=== PATIENT | female | born 1965 | race Caucasian/White ===

== ENCOUNTER 2021-11-28 18:02 | Emergency (ER) | payer MEDICARE, OTHER ==
[2021-11-28] MEDS ORDERED: SODIUM CHLORIDE 0.9% 1,000 ML IV STA (18:05)
--- NOTE | 2021-11-28 18:17 | ED ---
General Adult HPI - General Stated complaint: stroke symptoms Time Seen by Provider: 11/28/21 18:05 - History of Present Illness Initial comments: Dictation was produced using [employer] dictation software. please excuse any grammatical, word or spelling errors. Chief Complaint: Patient is 55-year-old female presents emergency department for altered mental status. History of Present Illness: 85-year-old female she presents to the emergency department for altered mental status she. Presents with EMS. EMS states that patient symptoms started at approximately 5:00 PM which was 40 12:55 hour prior to arrival. EMS did not have a last known normal. I did speak with patient significant other who is listed on her demographics. Gen. exam is Jarda Lott who is identified as patient significant other. At around 2:00 to 6 PM they we re trying to take a nap. Patient according to Jarad Lott was last normal at about 2:00 PM. At around 5:00 PM he asked her if she had a cigarette and noticed that she was very altered. EMS upon arrival reports the patient's blood pressure was significantly elevated with a systolic of 240. They report that patient appeared to not be moving her left side very well compared to her right. She is not following commands. Venous blood glucose was 180. Significant other reports that patient has history of some sort of left-sided brain abnormality that needed treatment that has not been pursued yet. Unable to obtain ROS secondary to mental status. PHYSICAL EXAM: General Impression: Not following commands, eyes open, deviation to the right HEENT: Normocephalic atraumatic, extra-ocular movements intact, pupils equal and reactive to light bilaterally, mucous membranes moist. Cardiovascular: Heart regular rate and rhythm Chest:no retractions, no tachypnea Abdomen: abdomen soft, non-tender, non-distended, no organomegaly Musculoskeletal: Pulses present and equal in all extremities, no peripheral edema Neurological: Gaze deviation to the right, not following commands, mu, moves all extremities grossly with noxious stimuli. Skin: Intact with no visualized rashes ED course: 55-year-old feel presents to the emergency department for altered mental status. Patient is not follow commands a gaze deviation to the right. Code WAS paged prior to patient arriving in the emergency department. Dr. Paez reviewed the images. Patient is not a candidate for all to place at this time given history. CV other than bedside states that he may have noticed convulsive-like movements today. She not in obvious candidate for alteplase at this time given that last known normal according to Oren Bernard was 2:00 PM. At time she presented to us and alteplase is repaired it would have been 4 hours and 30 minutes. Case is discussed with on-call stroke neurologist, Dr. Paez will review the films and provide further instruction. [address] Paez who would not recommend alteplase at this time given this vague history of intracranial mass. Dr. Paez reviewed the CT angio films did not show any large vessel occlusion. Patient not a candidate for thrombectomy. Dr. Paez request the patient be transferred to [facility] where they have neurosurgery service. He also r equests patient given Keppra. Patient given 1 g of Keppra. Spoke with Dr. Javier who is willing to accept patients care for ER to ER transfer. Patient was given some Narcan given that chart review reveals that patient has history of chronic pain and prescriptions for opiates. She did appear to be a little more agitated after Narcan was provided however she still altered. - Related Data Home Medications Medication Instructions Recorded Confirmed ALPRAZolam [Xanax] 1 mg PO HS PRN 04/20/15 04/20/15 Albuterol Inhaler [Ventolin Hfa 2 puff INHALATION RT-Q6H PRN 04/20/15 04/20/15 Inhaler] Gabapentin [Neurontin] 800 mg PO TID 04/20/15 04/20/15 Morphine Sulfate [Morphine Sulfate 30 mg PO QID PRN 04/20/15 04/20/15 ER] Previous Rx's Medication Instructions Recorded Aspirin 81 mg PO DAILY chew 04/22/15 Atorvastatin [Lipitor] 40 mg PO DAILY #30 tab 04/22/15 Diltiazem Cd [Cardizem CD] 120 mg PO DAILY #30 cap.er.24h 04/22/15 Melatonin 1 mg PO HS tab 04/22/15 Nicotine 21Mg/24Hr Patch [Habitrol] 1 patch TRANSDERM DAILY #14 patch 04/22/15 Tiotropium 18 Mcg/Puff [Spiriva] 1 puff INHALATION RT-DAILY #1 04/22/15 inhaler Allergies Allergy/AdvReac Type Severity Reaction Status Date / Time No Known Allergies Allergy Verified 04/20/15 12:30 Review of Systems ROS Statement: Those systems with pertinent positive or pertinent negative responses have been documented in the HPI. ROS Other: All systems not noted in ROS Statement are negative. Past Medical History Additional Past Medical History / Comment(s): DJD History of Any Multi-Drug Resistant Organisms: None Reported Past Surgical History: Section, Orthopedic Surgery Additional Past Surgical History / Comment(s): neck, hip left Past Psychological History: No Psychological Hx Reported Past Alcohol Use History: None Reported Past Drug Use History: Marijuana - Past Family History Mother Family Medical History: Cancer Additional Family Medical History / Comment(s): lung cancer Course Vital Signs 11/28/21 11/28/21 11/28/21 18:04 18:19 18:34 Pulse Rate 120 H 112 H 81 Respiratory 16 16 18 Rate Blood Pressure 250/130 199/130 187/120 O2 Sat by Pulse 97 96 96 Oximetry 11/28/21 11/28/21 11/28/21 18:40 19:00 19:12 Pulse Rate 84 88 Respiratory 18 18 20 Rate Blood Pressure 190/107 230/146 O2 Sat by Pulse 77 L Oximetry Medical Decision Making - Lab Data Result diagrams: 11/28/21 18:40 11/28/21 18:40 Lab Results 11/28/21 11/28/21 11/28/21 Range/Units 18:40 18:40 18:40 WBC 17.0 H (3.8-10.6) k/uL RBC 6.25 H (3.80-5.40) m/uL Hgb 13.3 (11.4-16.0) gm/dL Hct 46.1 H (34.0-46.0) % MCV 73.7 L (80.0-100.0) fL MCH 21.2 L (25.0-35.0) pg MCHC 28.8 L (31.0-37.0) g/dL RDW 16.6 H (11.5-15.5) % Plt Count 307 (150-450) k/uL MPV 9.5 Neutrophils % 75 % Lymphocytes % 16 % Monocytes % 6 % Eosinophils % 1 % Basophils % 1 % Neutrophils # 12.8 H (1.3-7.7) k/uL Lymphocytes # 2.6 (1.0-4.8) k/uL Monocytes # 1.0 (0-1.0) k/uL Eosinophils # 0.2 (0-0.7) k/uL Basophils # 0.1 (0-0.2) k/uL Hypochromasia Marked Anisocytosis Slight Microcytosis Moderate Sodium 135 L (137-145) mmol/L Potassium 3.9 (3.5-5.1) mmol/L Chloride 98 (98-107) mmol/L Carbon Dioxide 22 (22-30) mmol/L Anion Gap 15 mmol/L BUN 12 (7-17) mg/dL Creatinine 0.61 (0.52-1.04) mg/dL Est GFR (CKD-EPI)AfAm >90 (>60 ml/min/1.73 sqM) Est GFR (CKD-EPI)NonAf >90 (>60 ml/min/1.73 sqM) Glucose 248 H (74-99) mg/dL Calcium 9.5 (8.4-10.2) mg/dL Total Bilirubin 0.4 (0.2-1.3) mg/dL AST 34 (14-36) U/L ALT 21 (4-34) U/L Alkaline Phosphatase 146 H (38-126) U/L Troponin I <0.012 (0.000-0.034) ng/mL Total Protein 6.9 (6.3-8.2) g/dL Albumin 4.4 (3.5-5.0) g/dL Critical Care Time Critical Care Time: Yes Total Critical Care Time: 33 Disposition Clinical Impression: Cerebrovascular accident (CVA) Disposition: OTHER INSTITUTION NOT DEFINED Condition: Critical Referrals: Enoc Mullins DO [Primary Care Provider] - 1-2 days Time of Disposition: 19:22 - Out of Hospital Transfer - Req. Specs Out of Hospital Transfer - Requested Specifics: Other Emergency Center ([facility])
[2021-11-28] MEDS ORDERED: ALTEPLASE BOLUS FOR STROKE 5 MG in EMPTY SYRINGE 1 SYR IV STA (18:18)
[2021-11-28] MEDS ORDERED: ALTEPLASE 48 MG in EMPTY BAG 1 BAG IV STA (18:18)
[2021-11-28] MEDS ORDERED: LABETALOL 5 MG/ML VIAL MDV IVP STA (18:29)
--- NOTE | 2021-11-28 18:34 | CT ---
EXAMINATION TYPE: CT brain wo con for TPA DATE OF EXAM: 11/28/2021 COMPARISON: None HISTORY: Neuro deficit, acute, stroke suspected CT DLP: 1086.6 mGycm Automated exposure control for dose reduction was used. Ventricles have normal size. There is no mass effect or midline shift. No sign of intracranial hemorr alvarez. The calvarium is intact. There is normal aeration of the mastoid sinuses. No evidence of cerebr al edema. IMPRESSION: Negative unenhanced head CT scan.
[2021-11-28] MEDS ORDERED: levETIRAcetam IV 1,000 MG in SALINE 1 100ML.BAG IVPB STA (18:42)
[2021-11-28] MEDS ORDERED: LORazepam 2 MG/ML INJ IV STA ×3 (18:44→19:27)
[2021-11-28 18:48] LABS: Anisocytosis Slight; Basophils # (A) 0.1 k/uL (0-0.2); Basophils % (A) 1 %; Eosinophils # (A) 0.2 k/uL (0-0.7); Eosinophils % (A) 1 %; HCT 46.1 % (34.0-46.0); HGB 13.3 gm/dL (11.4-16.0); Hypochromasia Marked; Lymphocytes # (A) 2.6 k/uL (1.0-4.8); Lymphocytes % (A) 16 %; MCH 21.2 pg (25.0-35.0); MCHC 28.8 g/dL (31.0-37.0); MCV 73.7 fL (80.0-100.0); Mean Platelet Volume 9.5; Microcytosis Moderate; Monocytes % (A) 6 %; Neutrophils # (A) 12.8 k/uL (1.3-7.7); Neutrophils % (A) 75 %; Platelet Count 307 k/uL (150-450); RBC 6.25 m/uL (3.80-5.40); RDW 16.6 % (11.5-15.5)
--- NOTE | 2021-11-28 18:52 | CT ---
EXAMINATION TYPE: CT angio head neck DATE OF EXAM: 11/28/2021 COMPARISON: None HISTORY: Neuro deficit, acute, stroke suspected CT DLP: 431.6 mGycm Automated exposure control for dose reduction was used. CONTRAST: Performed with IV Contrast, patient injected with 65cc mL of Isovue 370. Images obtained from the aortic arch to the vertex of the brain with IV contrast. There are Three-D p ostprocessed images. There is normal branching pattern of the great vessels on the aortic arch. There is arterial flow in the subclavian arteries bilaterally. No evidence of aneurysm of the aortic arch. There is some plaque formation at the right carotid artery bifurcation and estimated 30% stenosis belen r the origin. There is moderate plaque formation and estimated close to 40% stenosis origin of the le ft internal carotid artery. No dissection. There is arterial flow in both vertebral arteries. The rig ht vertebral artery is larger than the left. There is arterial flow in the vertebrobasilar artery sys tem. No evidence of carotid or vertebral artery aneurysm or dissection. There are spondylotic changes in the cervical spine. There is moderate spinal stenosis due to develop mentally small spinal canal and endplate spur formation at C5-6. There is mild spinal stenosis also a t C4-5 There is arterial flow in the anterior middle and posterior cerebral arteries bilaterally. No evidenc e of intracranial aneurysm or neovascularity. No mass effect. Normal contrast opacification of the ve nous sinuses. No evidence of hemodynamic arterial stenosis. IMPRESSION: No intracranial angiographic abnormality. There is some mild stenosis in the origins of both internal carotid arteries as above. Spinal stenosis at C4-5 and C5-6
[2021-11-28 18:57] LABS: ALT 21 U/L (4-34); AST 34 U/L (14-36); African American GFR (CKD) >90 (>60 ml/min/1.73 sqM); Albumin 4.4 g/dL (3.5-5.0); Alkaline Phosphatase 146 U/L (38-126); Anion Gap 15 mmol/L; Blood Urea Nitrogen 12 mg/dL (7-17); Calcium 9.5 mg/dL (8.4-10.2); Carbon Dioxide 22 mmol/L (22-30); Chloride 98 mmol/L (98-107); Glucose 248 mg/dL (74-99); Non-African American GFR(CKD) >90 (>60 ml/min/1.73 sqM); Potassium 3.9 mmol/L (3.5-5.1); Sodium 135 mmol/L (137-145); Total Bilirubin 0.4 mg/dL (0.2-1.3); Total Protein 6.9 g/dL (6.3-8.2)
[2021-11-28] MEDS ORDERED: NALOXONE 0.4 MG/ML 1 ML VIAL IVP STA (19:12)
[2021-11-28] MEDS ORDERED: SODIUM CHLORIDE 0.9% 50 ML MINI-BAG IV ONE (19:19)
--- NOTE | 2021-11-28 19:27 | XR ---
EXAMINATION TYPE: XR chest 1V portable DATE OF EXAM: 11/28/2021 COMPARISON: 04/20/2015 HISTORY: Altered mental status TECHNIQUE: FINDINGS: Heart is normal. Lungs are clear. Diaphragm is normal. Bony thorax is intact. IMPRESSION: No active cardiopulmonary disease. Normal heart. No adverse change.
[2021-11-28 19:37] LABS: Acetaminophen <10.0 ug/mL; Salicylate <1.0 mg/dL
[2021-11-28 19:45] LABS: Prothrombin Time 10.7 sec (9.0-12.0)
[2021-11-28 19:46] LABS: Partial Thromboplastin Time 20.3 sec (22.0-30.0)
[2021-11-28 20:25] LABS: Amphetamine Screen,Urine Not Detected (NotDetected); Barbiturate Screen,Urine Not Detected (NotDetected); Benzodiazepines Screen,Urine Detected (NotDetected); Cocaine Screen,Urine Not Detected (NotDetected); Methadone Screen, Urine Not Detected (NotDetected); Opiate Screen,Urine Detected (NotDetected); Oxycodone Screen, Urine Not Detected (NotDetected); Phencyclidine Screen,Urine Not Detected (NotDetected); Tricyclic Antidepressant,Urine Detected (NotDetected); Urn Cannabinoid Scrn Detected (NotDetected)
[2021-11-28 20:57] VITALS: BP 190/91; PULSE 90; RESP 30; TEMP 98.1
== END 2021-11-28 20:57 | disposition other institution (70) ==
LOC: EC 18:02
DX: I63.9 Cerebral infarction, unspecified (principal)
CPT/HCPCS: 36415; 93005; 83930; 80053; 84484; 85025; 85610; 85730; 80306; 80143; 80179; 71045; 70496; 70450; 70498; 99291; 96365; 96366; 96375; 96376; J2060; J2310; J1953; Q9967

== ENCOUNTER 2023-01-27 23:49 | Inpatient (IN) | payer MEDICARE ==
[2023-01-27] MEDS ORDERED: LORazepam 2 MG/ML INJ IV STA (23:52)
[2023-01-27] MEDS ORDERED: NALOXONE 0.4 MG/ML 1 ML VIAL IV PRN (23:54)
--- NOTE | 2023-01-28 00:05 | ED ---
General Adult HPI - General Stated complaint: Alt Mental Time Seen by Provider: 01/27/23 23:51 Source: EMS, RN notes reviewed, old records reviewed Limitations: altered mental status - History of Present Illness Initial comments: 57-year-old female history of seizure disorder presents as a transfer from outside hospital having 2 witnessed seizures and having a prolonged postictal period. She was sent to this institution for neurology consultation. She received laboratory testing and CT imaging of the brain. She was transferred as she had not returned to baseline mental status. She is on Keppra at baseline and have been loaded with 2 g of Keppra as well as Ativan prior to transfer. According to the ER note this has been a recurrent issue for this patient. Patient had a high lactate consistent with seizure at 10.6. She was acidotic with a CO2 of 13. - Related Data Home Medications Medication Instructions Recorded Confirmed ALPRAZolam [Xanax] 1 mg PO HS PRN 04/20/15 04/20/15 Albuterol Inhaler [Ventolin Hfa 2 puff INHALATION RT-Q6H PRN 04/20/15 04/20/15 Inhaler] Gabapentin [Neurontin] 800 mg PO TID 04/20/15 04/20/15 Morphine Sulfate [Morphine Sulfate 30 mg PO QID PRN 04/20/15 04/20/15 ER] Previous Rx's Medication Instructions Recorded Aspirin 81 mg PO DAILY chew 04/22/15 Atorvastatin [Lipitor] 40 mg PO DAILY #30 tab 04/22/15 Diltiazem Cd [Cardizem CD] 120 mg PO DAILY #30 cap.er.24h 04/22/15 Melatonin 1 mg PO HS tab 04/22/15 Nicotine 21Mg/24Hr Patch [Habitrol] 1 patch TRANSDERM DAILY #14 patch 04/22/15 Tiotropium 18 Mcg/Puff [Spiriva] 1 puff INHALATION RT-DAILY #1 04/22/15 inhaler Allergies Allergy/AdvReac Type Severity Reaction Status Date / Time No Known Allergies Allergy Verified 04/20/15 12:30 Review of Systems ROS Statement: Those systems with pertinent positive or pertinent negative responses have been documented in the HPI. ROS Other: All systems not noted in ROS Statement are negative. Past Medical History Additional Past Medical History / Comment(s): DJD History of Any Multi-Drug Resistant Organisms: None Reported Past Surgical History: Section, Orthopedic Surgery Additional Past Surgical History / Comment(s): neck, hip left Past Psychological History: No Psychological Hx Reported Past Alcohol Use History: None Reported Past Drug Use History: Marijuana - Past Family History Mother Family Medical History: Cancer Additional Family Medical History / Comment(s): lung cancer General Exam General appearance: in no apparent distress, lethargic Head exam: Present: atraumatic, normocephalic Eye exam: Present: normal appearance, PERRL Respiratory exam: Present: normal lung sounds bilaterally. Absent: respiratory distress, wheezes Cardiovascular Exam: Present: regular rate, normal rhythm GI/Abdominal exam: Present: soft. Absent: distended, tenderness, guarding Neurological exam: Present: alert, other (Patient is agitated, will follow simple commands and is moving all extremities.). Absent: oriented X3, motor sensory deficit Psychiatric exam: Present: agitated Skin exam: Present: warm, dry, intact Course Vital Signs 01/27/23 01/28/23 01/28/23 23:52 00:14 00:36 Temperature 97.4 F L Pulse Rate 114 H 90 Respiratory 26 H 28 H Rate Blood Pressure 194/97 194/88 O2 Sat by Pulse 95 98 Oximetry Medical Decision Making - Medical Decision Making Was pt. sent in by a medical professional or institution ([facility], [facility], urgent care, hospital, or group home...) When possible be specific @Transferred from [facility] Did you speak to anyone other than the patient for history (EMS, parent, family, police, friend...)? What history was obtained from this source @ -[No] Did you review nursing and triage notes (agree or disagree)? Why? @ -[I reviewed and agree with nursing and triage notes] Were old charts reviewed (outside hosp., previous admission, EMS record, old EKG, old radiological studies, urgent care reports/EKG's, group home records)? Report findings @ -[No old charts were reviewed] Differential Diagnosis (chest pain, altered mental status, abdominal pain women, abdominal pain men, vaginal bleeding, weakness, fever, dyspnea, syncope, headache, dizziness, GI bleed, back pain, seizure, CVA, palpatations, mental health, musculoskeletal)? @ -[Differential Seizure: Recurrent seizure disorder, febrile seizure, alcohol withdrawal, stimulants, meningitis, encephalitis, intercranial hemorrhage, intracranial tumor, stroke, eclampsia, thyrotoxicosis, hypocalcemia, hyponatremia, hypernatremia, hypomagnesemia, psychogenic, this is not meant to be an all-inclusive list. EKG interpreted by me (3pts min.). @ -[Sinus tachycardia rate of 103, IA interval 153, QRS duration 98, QTC 394, no ST segment elevation. X-rays interpreted by me (1pt min.). @ -[None done] CT interpreted by me (1pt min.). @ -CT images currently being loaded. U/S interpreted by me (1pt. min.). @ -[None done] What testing was considered but not performed or refused? (CT, X-rays, U/S, labs)? Why? @ -[None] What meds were considered but not given or refused? Why? @ -[None] Did you discuss the management of the patient with other professionals (professionals i.e. , PA, [facility], lab, RT, psych nurse, socially responsible investment adviser, clinical psychologist private practice, teacher, electronic warfare officer, mattress spring encaser)? Give summary @ -Dr Martinez Was smoking cessation discussed for >3mins.? @ -[No] Was critical care preformed (if so, how long)? @ -[No] Were there social determinants of health that impacted care today? How? (Homelessness, low income, unemployed, alcoholism, drug addiction, transportation, low edu. Level, literacy, decrease access to med. care, usp, rehab)? @ -[No] Was there de-escalation of care discussed even if they declined (Discuss DNR or withdrawal of care, Hospice)? DNR status @ -[No] What co-morbidities impacted this encounter? (DM, HTN, Smoking, COPD, CAD, Cancer, CVA, ARF, Chemo, Hep., AIDS, mental health diagnosis, sleep apnea, morbid obesity)? @ -[Seizure disorder Was patient admitted / discharged? Hospital course, mention meds given and route, prescriptions, significant lab abnormalities, going to OR and other pertinent info. @ -[57-year-old female transferred from outside hospital for recurrent seizure and prolonged postictal period requesting neurology consultation per patient will be admitted on seizure precautions. She'll be admitted to Dr. Martinez. Neurology placed on consult. Patient did have high lactic and was acidotic. His laboratory testing will be repeated. She'll be continued on Keppra at this time. Undiagnosed new problem with uncertain prognosis? @ -[No] Drug Therapy requiring intensive monitoring for toxicity (Heparin, Nitro, Insulin, Cardizem)? @ -[No] Were any procedures done? @ -[No] Diagnosis/symptom? @ -[Recurrent seizure, prolonged postictal Acute, or Chronic, or Acute on Chronic? @ -Acute on chronic Uncomplicated (without systemic symptoms) or Complicated (systemic symptoms)? @Complicated Side effects of treatment? @ -[No] Exacerbation, Progression, or Severe Exacerbation? @ -[No] Poses a threat to life or bodily function? How? (Chest pain, USA, PA, pneumonia, PE, COPD, DKA, ARF, appy, cholecystitis, CVA, Diverticulitis, Homicidal, Suicidal, threat to staff... and all critical care pts) @ -[Yes, seizure, coma - Lab Data Result diagrams: 01/28/23 00:36 01/28/23 00:36 Disposition Clinical Impression: Recurrent seizures, Postictal confusion Disposition: ADMITTED IP TO THIS [facility] Condition: Stable Is patient prescribed a controlled substance at d/c from ED?: No Time of Disposition: 00:04
[2023-01-28] MEDS: SODIUM CHLORIDE 0.9% 1,000 ML IV SCH ×2 (00:24→12:35)
[2023-01-28 01:15] LABS: Anisocytosis Slight; Basophils % (A) 0 %; Eosinophils # (A) 0.1 k/uL (0-0.7); Eosinophils % (A) 1 %; HCT 42.6 % (34.0-46.0); HGB 13.8 gm/dL (11.4-16.0); Lymphocytes # (A) 1.2 k/uL (1.0-4.8); Lymphocytes % (A) 8 %; MCH 24.7 pg (25.0-35.0); MCHC 32.5 g/dL (31.0-37.0); Mean Platelet Volume 8.5; Microcytosis Slight; Monocytes # (A) 0.7 k/uL (0-1.0); Monocytes % (A) 5 %; Neutrophils # (A) 12.6 k/uL (1.3-7.7); Neutrophils % (A) 86 %; Platelet Count 273 k/uL (150-450); RBC 5.61 m/uL (3.80-5.40); RDW 16.9 % (11.5-15.5); WBC 14.7 k/uL (3.8-10.6)
[2023-01-28 01:32] LABS: African American GFR (CKD) >90 (>60 ml/min/1.73 sqM); Anion Gap 11 mmol/L; Blood Urea Nitrogen 3 mg/dL (7-17); Calcium 9.7 mg/dL (8.4-10.2); Carbon Dioxide 23 mmol/L (22-30); Chloride 101 mmol/L (98-107); Glucose 125 mg/dL (74-99); Magnesium 1.9 mg/dL (1.6-2.3); Non-African American GFR(CKD) >90 (>60 ml/min/1.73 sqM); Potassium 3.9 mmol/L (3.5-5.1); Sodium 135 mmol/L (137-145)
--- NOTE | 2023-01-28 11:31 | P.HPIM ---
History of Present Illness H&P Date: 01/28/23 Chief Complaint: seizure activity This is a 57-year-old female with past medical history significant for seizure disorder on Keppra, DJD, marijuana use, perforated gastric ulcer repair July 2022 and multiple other medical issues transferred to the ER from [facility] for neurology evaluation in a patient who initially presented with complaints of 2 witnessed seizures, prolonged post ictal period,confused . Brain CT reported nonacute, CTA reported chronic subclavian stenosis. Afebrile, normal WBC, renal function stable, troponins negative, denies chest pain, palpitations or shortness of breath. She presents with a congested cough. ER noted, loaded with Keppra and Ativan prior to transfer. Patient is currently pleasantly confused, vague historian, does not recall specific events. States her last seizure was in 1-2 days ago with blacking out. States headache improved. Review of Systems ROS unable to obtain as patient is currently confused. Past Medical History Past Medical History: Seizure Disorder Additional Past Medical History / Comment(s): DJD History of Any Multi-Drug Resistant Organisms: None Reported Past Surgical History: Section, Orthopedic Surgery Additional Past Surgical History / Comment(s): neck, hip left Past Psychological History: No Psychological Hx Reported Past Alcohol Use History: None Reported Past Drug Use History: Marijuana - Past Family History Mother Family Medical History: Cancer Additional Family Medical History / Comment(s): lung cancer Medications and Allergies Home Medications Medication Instructions Recorded Confirmed Type Atorvastatin [Lipitor] 40 mg PO HS 01/28/23 01/28/23 History Ergocalciferol (Vitamin D2) 1,250 mcg PO MO 01/28/23 01/28/23 History [Drisdol (50,000 Iu)] Gabapentin 600 mg PO TID 01/28/23 01/28/23 History HYDROcodone/APAP 10-325MG [Orondo 1 tab PO TID PRN 01/28/23 01/28/23 History 10-325] Levothyroxine Sodium [Synthroid] 100 mcg PO DAILY 01/28/23 01/28/23 History Losartan Potassium 50 mg PO DAILY 01/28/23 01/28/23 History Omeprazole 40 mg PO DAILY 01/28/23 01/28/23 History QUEtiapine [SEROquel] 100 mg PO HS 01/28/23 01/28/23 History Sucralfate [Carafate] 1 gm PO QID 01/28/23 01/28/23 History busPIRone HCL 10 mg PO BID 01/28/23 01/28/23 History levETIRAcetam [Keppra] 1,500 mg PO BID 01/28/23 01/28/23 History Allergies Allergy/AdvReac Type Severity Reaction Status Date / Time No Known Allergies Allergy Verified 04/20/15 12:30 Physical Exam Vitals: Vital Signs Temp Pulse Resp BP Pulse Ox 01/28/23 06:35 98.4 F 82 18 98 01/28/23 02:58 88 20 140/74 98 01/28/23 00:36 90 28 H 194/88 98 01/28/23 00:14 194/97 01/27/23 23:52 97.4 F L 114 H 26 H 95 Intake and Output 01/27/23 01/28/23 01/28/23 22:59 06:59 14:59 Other: Weight 38.555 kg PHYSICAL EXAM: VITAL SIGNS: As above GENERAL: Cachexic, Sitting up on stretcher, seizure pads. HEENT: Normocephalic, Conjunctivae normal. eyes normal. NECK: Supple, No JVD. No thyroid enlargement. No LNs CARDIOVASCULAR: S1, S2 regular.. No murmur RESPIRATION: Unlabored, equal air entry , essentially clear with bilateral bases diminished, congested cough.No rhonchi or crackles. No bronchial breathing. ABDOMEN: Soft, nontender . No guarding. no masses palpable. No ascites, No hepatosplenomegaly.Bowel sounds heard. LEGS: No edema. no swelling PSYCHIATRY: Alert and oriented X1-2, pleasantly confused NERVOUS SYSTEM: Cranial N 2-12 grossly normal. Moves all 4 limbs. Diffuse weakness .Strength and sensation grossly intact. Skin: Warm and dry, no rash Results CBC & Chem 7: 01/28/23 00:36 01/28/23 00:36 Labs: Abnormal Lab Results - Last 24 Hours (Table) 01/28/23 01/28/23 Range/Units 00:36 00:36 WBC 14.7 H (3.8-10.6) k/uL RBC 5.61 H (3.80-5.40) m/uL MCV 76.0 L (80.0-100.0) fL MCH 24.7 L (25.0-35.0) pg RDW 16.9 H (11.5-15.5) % Neutrophils # 12.6 H (1.3-7.7) k/uL Sodium 135 L (137-145) mmol/L BUN 3 L (7-17) mg/dL Creatinine 0.51 L (0.52-1.04) mg/dL Glucose 125 H (74-99) mg/dL Assessment and Plan Assessment: Recurrent seizures in a patient with history of seizure disorder Marijuana use Osteoarthritis, DJD Emphysema Chronic nicotine dependence Chronic insomnia History of pneumoperitoneum, perforated gastric ulcer with surgical repair at [facility], July 2022 Plan: Continue on current medication regime ,monitoring and symptomatic treatment. IV fluid hydration, IV Keppra. PPI for GI prophylaxis. Neurology consult in place. Seizure precautions. PT/OT. The impression and plan of care has been dictated as directed. : I performed a history and examination of this patient, discussed the same with the dictator. I agree with the dictator's note ,documented as a scribe. Any additional findings or plans will be noted.
[2023-01-28] MEDS: PANTOPRAZOLE 40 MG TABLET PO SCH (12:20)
[2023-01-28] MEDS: GABAPENTIN 300 MG CAP PO SCH ×3 (12:20→22:17)
[2023-01-28] MEDS: QUEtiapine 100 MG TAB PO SCH ×2 (12:20→20:11)
[2023-01-28] MEDS: LOSARTAN 50 MG TAB PO SCH (12:20)
[2023-01-28] MEDS: LEVOTHYROXINE 100 MCG TAB PO SCH ×2 (12:20→12:21)
--- NOTE | 2023-01-28 12:21 | XR ---
EXAMINATION TYPE: XR chest 2V DATE OF EXAM: 01/28/2023 12:15 PM COMPARISON: Chest radiographs from 01/27/2023, 11/28/2021 TECHNIQUE: XR chest 2V Frontal and lateral views of the chest. CLINICAL INDICATION:Female, 57 years old with history of Cough, congestion, confusion; FINDINGS: Lungs/Pleura: There is flattening of the diaphragm with increased lucency of the lungs. No evidence o f pneumothorax, pleural effusion or focal consolidation. Pulmonary vascularity: Unremarkable. Heart/mediastinum: Cardiomediastinal silhouette is unremarkable. Musculoskeletal: No acute osseous pathology. Anterior cervical fusion hardware demonstrated. IMPRESSION: 1. No acute cardiopulmonary disease process. 2. COPD changes.
[2023-01-28] MEDS: levETIRAcetam IV 500 MG/5 ML VIAL IVP SCH ×2 (12:29→20:10)
--- NOTE | 2023-01-28 12:45 | P.CNNES ---
History of Present Illness Consult date: 01/28/23 Requesting physician: Ubaldo Silveira Reason for Consult: recurrent seizure with prolonged postictal peroid History of Present Illness: This is a 57-year-old woman with history of seizures, hypertension, substance abuse (cocaine), tobacco use who presented to the emergency department because of breakthrough seizure. History is obtained from the patient's sister was at bedside. According to the sister she stated that patient has been having seizure for the last 1 year and that she presented because of breakthrough seizure but could not describe her seizure episode that she had that. Per the sister she is on Keppra did not know the exact dose. It seems that the patient is on 1500 mg twice a day per her home medication per EMR. According the sister recently she had the uncontrolled hypertension and she was a managed at an outside hospital. Also in the last couple weeks to a month patient has been having psychosis accusing people stealing her money and being aggressive. It seems the patient has been started on Seroquel and that's her home medication of 100 mg daily at bedtime. Also seems that she is on pupil was thrown 10 mg twice a day. Also according to the sister patient has used cocaine in the last few weeks. Baseline the patient has normal conversation and she is alert oriented 3. Upon seeing the patient she was confused and unable to provide history. Some of the workup during his hospital visit consisted of: Temperature is 97.4 Fahrenheit and the repair is 98.4 Fahrenheit. On initial presentation her blood pressure was 194/97 with recent is 159/97. White blood cells 14.7 thousand, MCV is 76.0. Sodium is 135, calcium 9.7, magnesium is 1.9, Plasma-Lyte acid venous is 1.6 at. Review of Systems The positive and negative as per HPI. Otherwise limited. Past Medical History Past Medical History: Seizure Disorder Additional Past Medical History / Comment(s): DJD History of Any Multi-Drug Resistant Organisms: None Reported Past Surgical History: Section, Orthopedic Surgery Additional Past Surgical History / Comment(s): neck, hip left Past Psychological History: No Psychological Hx Reported Past Alcohol Use History: None Reported Past Drug Use History: Marijuana - Past Family History Mother Family Medical History: Cancer Additional Family Medical History / Comment(s): lung cancer Medications and Allergies Home Medications Medication Instructions Recorded Confirmed Type Atorvastatin [Lipitor] 40 mg PO HS 01/28/23 01/28/23 History Ergocalciferol (Vitamin D2) 1,250 mcg PO MO 01/28/23 01/28/23 History [Drisdol (50,000 Iu)] Gabapentin 600 mg PO TID 01/28/23 01/28/23 History HYDROcodone/APAP 10-325MG [[place] 1 tab PO TID PRN 01/28/23 01/28/23 History 10-325] Levothyroxine Sodium [Synthroid] 100 mcg PO DAILY 01/28/23 01/28/23 History Losartan Potassium 50 mg PO DAILY 01/28/23 01/28/23 History Omeprazole 40 mg PO DAILY 01/28/23 01/28/23 History QUEtiapine [SEROquel] 100 mg PO HS 01/28/23 01/28/23 History Sucralfate [Carafate] 1 gm PO QID 01/28/23 01/28/23 History busPIRone HCL 10 mg PO BID 01/28/23 01/28/23 History levETIRAcetam [Keppra] 1,500 mg PO BID 01/28/23 01/28/23 History Allergies Allergy/AdvReac Type Severity Reaction Status Date / Time No Known Allergies Allergy Verified 04/20/15 12:30 Physical Examination - Vital Signs Vital Signs: Vital Signs Temp Pulse Resp BP Pulse Ox 01/28/23 12:22 80 18 159/97 96 01/28/23 08:33 76 18 141/77 96 01/28/23 06:35 98.4 F 82 18 98 01/28/23 02:58 88 20 140/74 98 01/28/23 00:36 90 28 H 194/88 98 01/28/23 00:14 194/97 01/27/23 23:52 97.4 F L 114 H 26 H 95 Intake and Output 01/27/23 01/28/23 01/28/23 22:59 06:59 14:59 Other: Weight 38.555 kg GENERAL: The patient is lying in bed and does not appear in acute distress. HENT: Supple neck. NEUROLOGICAL: Limited since patient confused. Patient is oriented to self and was able to tell me her date of and the current year. She stated that the month is April. She did not know where she is at currently. She identified her sister as the physician. She's able to name a few objects correctly such as glasses and pen. She followed the few simple commands but I had to repeat the instructions to her multiple times. The pupils are round equal and reactive to light. Visual umanozr appears full throughout confrontation. Extraocular movement is intact no nystagmus. No facial weakness. No dysarthria. Motor is hard to assess individual muscle strength because of her cooperation but was left. All extremities above gravity and it appears symmetrical. Cerebellum: Normal finger to nose bilaterally. Sensation: Sensation is normal to touch throughout. Reflexes (right/left):2+ throughout. Plantars are mute bilaterally. Results - Laboratory Findings CBC and BMP: 01/28/23 00:36 01/28/23 00:36 Abnormal Lab Findings: Abnormal Labs 01/28/23 01/28/23 00:36 00:36 WBC 14.7 H RBC 5.61 H MCV 76.0 L MCH 24.7 L RDW 16.9 H Neutrophils # 12.6 H Sodium 135 L BUN 3 L Creatinine 0.51 L Glucose 125 H Assessment and Plan Assessment: This is a 57-year-old woman with history of seizure who presented emergency department because of reported breakthrough seizure. According to the sister she's been having psychosis with the accusing people of stealing her money as well as being aggressive. Also per sister in the last few weeks and she is a used cocaine. On examination she continues to be confused. Encephalopathy of unknown etiology. Unsure if truly due to post ictal confusion and her Plasma-lactic acid vein is 1.6 which is considered normal. Rule out underlying infection or psychosis as a result. Breakthrough seizure History of seizures and is on Keppra Slight leukocytosis but is afebrile unsure exactly etiology Accelerated Hypertension History of hypertension History of cocaine use Tobacco use Plan: Routine EEG is ordered and is pending I ordered urine drug screen, alcohol level, TSH, ammonia level, vitamin B12, folate. Ordered Keppra level I also ordered CT of the brain without. If there CT of the brain is negative as well as the EEG is negative for any seizures then we'll pursue with MRI of the brain continues to have confusion Patient is resumed on her home dose of Keppra 1500 mg every 12 hours. She is also on gabapentin 600 mg 3 times a day. Psychiatry team was consulted for psychosis Recommend pursuing infection workup and we'll defer that management to the primary team. Seizure precaution seizure pads We'll defer the rest of medical management to primary team The plan discussed with the patient nurse and her sister. Thank you for the consultation Time with Patient: Greater than 30
[2023-01-28 13:15] LABS: Alcohol <10 mg/dL
--- NOTE | 2023-01-28 13:32 | CT ---
EXAMINATION TYPE: CT brain wo con CT DLP: 1130.4 mGycm, Automated exposure control for dose reduction was used. DATE OF EXAM: 01/28/2023 1:22 PM COMPARISON: CT brain 11/28/2021 CLINICAL INDICATION:Female, 57 years old with history of confusion, Confusion. Recurrent seizures wit h prolonged postitical TECHNIQUE: Brain: Multiple axial CT images of the brain were obtained without IV contrast. Coronal and sagittal reformats reviewed. FINDINGS: Brain: Extra-axial spaces: No abnormal extra-axial fluid collections. Ventricular system: Within normal limits Cerebral parenchyma: No acute intraparenchymal hemorrhage or mass effect. The hickey-white junction is well differentiated. Scattered hypoattenuating areas are seen within the white matter. Cerebellum: Unremarkable. Mass effect: No evidence of midline shift. Intracranial vasculature: unremarkable Soft tissues: Normal. Calvarium/osseous structures: No depressed skull fracture. Remote fracture to the right medial orbita l wall. Paranasal sinuses and mastoid air cells: Clear Visualized orbits: Orbital contents are intact. IMPRESSION: 1. No acute intracranial process. 2. Nonspecific white matter changes, likely secondary to chronic small vessel ischemic disease.
[2023-01-28 14:16] LABS: T4, Free (Free Thyroxine) 1.17 ng/dL (0.78-2.19)
[2023-01-28] MEDS ORDERED: LORazepam 2 MG/ML INJ IV PRN (19:00)
[2023-01-28] MEDS: ACETAMINOPHEN TAB 325 MG TAB PO PRN (19:25)
--- NOTE | 2023-01-28 20:02 | EEG ---
ELECTROENCEPHALOGRAM REPORT CLINICAL HISTORY: This is a 57-year-old woman with history of seizure, who presented to the emergency department because of breakthrough seizures. The video EEG is obtained to evaluate for seizure and epileptiform activity. RELEVANT MEDICATIONS: 1. Keppra. 2. Ativan. 3. Gabapentin. EEG TYPE: A routine 21-channel EEG with video using the 10/20 electrode placement system. DESCRIPTION: Wakefulness and drowsiness are obtained. During awake state, the background consists of tjj-us-yumnyswd voltage of 7 to 8 Hz that is poorly formed and modulated. At times, the background consists of theta intermixed with delta activity. There is no physiological stage II sleep architecture. There is no focal slowing. INTERICTAL AND ICTAL: None. ACTIVATION PROCEDURE: Photic stimulation did not evoke a posterior driving response. There is no abnormality during the photic stimulation. Hyperventilation is not performed. CLINICAL INTERPRETATION: This is an abnormal routine EEG. The background slowing is suggestive of mild-to- moderate encephalopathy. Otherwise, there is no focal slowing, epileptiform discharges, or seizure on the EEG. Clinical correlation is recommended. MMODL / IJN: [id number] /
[2023-01-28] MEDS: ATORVASTATIN 40 MG TAB PO SCH (20:10)
[2023-01-29] MEDS: SODIUM CHLORIDE 0.9% 1,000 ML IV SCH (05:19)
[2023-01-29] MEDS: LEVOTHYROXINE 100 MCG TAB PO SCH (06:08)
[2023-01-29] MEDS: PANTOPRAZOLE 40 MG TABLET PO SCH (06:08)
[2023-01-29 08:09] LABS: Anisocytosis Slight; Basophils # (A) 0.1 k/uL (0-0.2); Basophils % (A) 1 %; Eosinophils # (A) 0.1 k/uL (0-0.7); Eosinophils % (A) 2 %; HCT 42.9 % (34.0-46.0); HGB 13.9 gm/dL (11.4-16.0); Lymphocytes # (A) 2.2 k/uL (1.0-4.8); Lymphocytes % (A) 33 %; MCH 25.1 pg (25.0-35.0); MCHC 32.3 g/dL (31.0-37.0); MCV 77.8 fL (80.0-100.0); Mean Platelet Volume 8.4; Microcytosis Slight; Monocytes # (A) 0.5 k/uL (0-1.0); Monocytes % (A) 8 %; Neutrophils # (A) 3.7 k/uL (1.3-7.7); Neutrophils % (A) 55 %; Platelet Count 237 k/uL (150-450); RBC 5.52 m/uL (3.80-5.40); RDW 17.1 % (11.5-15.5); WBC 6.7 k/uL (3.8-10.6)
[2023-01-29 08:36] LABS: African American GFR (CKD) >90 (>60 ml/min/1.73 sqM); Anion Gap 10 mmol/L; Blood Urea Nitrogen 11 mg/dL (7-17); Calcium 9.6 mg/dL (8.4-10.2); Carbon Dioxide 23 mmol/L (22-30); Chloride 103 mmol/L (98-107); Glucose 116 mg/dL (74-99); Non-African American GFR(CKD) >90 (>60 ml/min/1.73 sqM); Potassium 3.9 mmol/L (3.5-5.1); Sodium 136 mmol/L (137-145)
[2023-01-29] MEDS: levETIRAcetam IV 500 MG/5 ML VIAL IVP SCH ×2 (08:55→20:10)
[2023-01-29] MEDS: LOSARTAN 50 MG TAB PO SCH (08:56)
[2023-01-29] MEDS: GABAPENTIN 300 MG CAP PO SCH ×3 (08:56→22:52)
--- NOTE | 2023-01-29 10:45 | P.PN ---
Subjective Progress Note Date: 01/29/23 H&P Date: 01/28/23 Chief Complaint: seizure activity This is a 57-year-old female with past medical history significant for seizure disorder on Keppra, DJD, marijuana use, perforated gastric ulcer repair July 2022 and multiple other medical issues transferred to the ER from [facility] for neurology evaluation in a patient who initially presented with complaints of 2 witnessed seizures, prolonged post ictal period,confused . Brain CT reported nonacute, CTA reported chronic subclavian stenosis. Afebrile, normal WBC, renal function stable, troponins negative, denies chest pain, palpitations or shortness of breath. She presents with a congested cough. ER noted, loaded with Keppra and Ativan prior to transfer. Patient is currently pleasantly confused, vague historian, does not recall specific events. States her last seizure was in 1-2 days ago with blacking out. States headache improved. 01/29/2023 Sensorium significantly improved, yet memory is still lacking regarding events prior to hospitalization. Recalls minimal details from yesterday. Denies blurred vision, complains of mild headache. Reports her blinking is like "flashes". Maintaining O2 sats in the mid to high 90s on room air. Chest x-ray reported no acute cardiopulmonary disease process, COPD changes. Afebrile, WBC has normalized, 6.7 . Pro-calcitonin ordered . Denies urinary symptoms, no dysuria or frequency, no flank pain. Renal function s table. Consuming to 100% of breakfast. Denies nausea, vomiting or diarrhea. Brain CT reported no acute intracranial process , nonspecific white matter changes likely secondary to chronic small vessel ischemic disease .Abnormal EEG reporting background slowing, suggestive of mild to moderate encephalopathy, otherwise no focal slowing, epileptiform discharges or seizure.Neurology workup in progress, scheduled for MRI of brain. TSH 0.296, free T4 1.17 currently on levothyroxin 100mcgs. Objective - Vital Signs Vital signs: Vital Signs Temp 97.7 F 01/29/23 08:42 Pulse 90 01/29/23 08:42 Resp 18 01/29/23 08:42 BP 153/84 01/29/23 08:42 Pulse Ox 96 01/29/23 08:42 FiO2 - Exam PHYSICAL EXAM: VITAL SIGNS: As above GENERAL: Cachexic, more alert, sitting up in bed, conversing seizure pads. HEENT: Normocephalic, Conjunctivae normal. eyes normal. NECK: Supple, No JVD. CARDIOVASCULAR: S1, S2 regular. No murmur RESPIRATION: Unlabored, equal air entry , essentially clear with bilateral bases diminished. ABDOMEN: Soft, nontender . No guarding. +BS. LEGS: No edema. no swelling PSYCHIATRY: Alert and oriented X2, NERVOUS SYSTEM: Cranial N 2-12 grossly normal. Strength and sensation grossly intact. Skin: Warm and dry, no rash - Labs CBC & Chem 7: 01/29/23 07:42 01/29/23 07:42 Labs: Abnormal Lab Results - Last 24 Hours (Table) 01/28/23 01/28/23 01/29/23 Range/Units 12:49 12:49 07:42 RBC 5.52 H (3.80-5.40) m/uL MCV 77.8 L (80.0-100.0) fL RDW 17.1 H (11.5-15.5) % Sodium (137-145) mmol/L Glucose (74-99) mg/dL TSH 0.296 L (0.465-4.680) mIU/L Levetiracetam 75.9 H (3.0-60.0) ug/mL 01/29/23 Range/Units 07:42 RBC (3.80-5.40) m/uL MCV (80.0-100.0) fL RDW (11.5-15.5) % Sodium 136 L (137-145) mmol/L Glucose 116 H (74-99) mg/dL TSH (0.465-4.680) mIU/L Levetiracetam (3.0-60.0) ug/mL Assessment and Plan Assessment: Recurrent seizures in a patient with history of seizure disorder Post ictal confusion, encephalopathy, etiology unclear, possibly metabolic or toxic secondary to medications, patient had been on opioids, sister had reported patient also using cocaine .EEG abnormal, reported background slowing suggestive for mild to moderate encephalopathy. Potential psychosis, Psychiatry consulted. Marijuana use Osteoarthritis, DJD Emphysema Chronic nicotine dependence Chronic insomnia History of pneumoperitoneum, perforated gastric ulcer with surgical repair at [facility], July 2022 Plan: Continue on current medication regime ,monitoring and symptomatic treatment. Mild hypertension this morning, good diet intake, IV fluids discontinued. Decreased levothyroxine.Pro-calcitonin pending. IV Keppra. Maintain seizure precautions. Neurology workup in progress, scheduled for brain MRI. PT/OT. Psychiatry has been consulted regarding potential psychosis. Prognosis guarded given multiple complex medical issues. Discharge planning for tomorrow, pending neurology workup. The impression and plan of care has been dictated as directed. : I performed a history and examination of this patient, discussed the same with the dictator. I agree with the dictator's note ,documented as a scribe. Any additional findings or plans will be noted.
[2023-01-29 12:14] VITALS: BMI 15.5
--- NOTE | 2023-01-29 12:31 | P.PN ---
Subjective Progress Note Date: 01/29/23 I am following-up with patient and per nurse somewhat better. No seizure-like activity. Patient states she feels overall better. Per nurse cannot obtain MRI since has IUD. Objective - Vital Signs Vital signs: Vital Signs Temp 97.7 F 01/29/23 08:42 Pulse 90 01/29/23 08:42 Resp 18 01/29/23 08:42 BP 153/84 01/29/23 08:42 Pulse Ox 96 01/29/23 08:42 FiO2 Intake & Output 01/28/23 01/29/23 01/29/23 18:59 06:59 18:59 Weight 38.555 kg Other: Voiding Method Toilet - Exam General: The patient is lying in bed and is not in acute distress. Neuro: The patient is awake alert oriented to self, she stated she is in the hospital but did not know the name and she correctly stated that the month. She stated the year is either 2021 or 2022. Is following simple commands. No aphasia. No neglect. The pupils are round equal reactive to light. Visual umanzor are full to confrontation. No facial weakness. No dysarthria Motor is the strength is 5 out of 5 throughout. Some of the workup during his hospital visit consisted of: Temperature is 97.4 Fahrenheit and the repair is 98.4 Fahrenheit. On initial presentation her blood pressure was 194/97 with recent is 159/97. White blood cells 14.7 thousand, MCV is 76.0. Sodium is 135, calcium 9.7, magnesium is 1.9, Plasma-Lyte acid venous is 1.6. TSH is 0.296 and the free T4 is 1.7 Folate is 11.9 Vitamin B12 is 794 Ammonia level is less than 9. CT of the head is reported as no acute intracranial process. Nonspecific white matter changes likely secondary due to chronic small vessel ischemic disease. Routine EEG is abnormal. Tobacco slowing suggestive of mild to moderate encephalopathy. Otherwise there is no focal slowing, perform discharge or seizure on the EEG. - Labs CBC & Chem 7: 01/29/23 07:42 01/29/23 07:42 Labs: Abnormal Lab Results - Last 24 Hours (Table) 01/28/23 01/28/23 01/29/23 Range/Units 12:49 12:49 07:42 RBC 5.52 H (3.80-5.40) m/uL MCV 77.8 L (80.0-100.0) fL RDW 17.1 H (11.5-15.5) % Sodium (137-145) mmol/L Glucose (74-99) mg/dL TSH 0.296 L (0.465-4.680) mIU/L Levetiracetam 75.9 H (3.0-60.0) ug/mL 01/29/23 Range/Units 07:42 RBC (3.80-5.40) m/uL MCV (80.0-100.0) fL RDW (11.5-15.5) % Sodium 136 L (137-145) mmol/L Glucose 116 H (74-99) mg/dL TSH (0.465-4.680) mIU/L Levetiracetam (3.0-60.0) ug/mL Assessment and Plan Assessment: This is a 57-year-old woman with history of seizure who presented emergency department because of reported breakthrough seizure. According to the sister she's been having psychosis with the accusing people of stealing her money as well as being aggressive. Also per sister in the last few weeks and she is a used cocaine. On examination she continues to be confused. Encephalopathy of unknown etiology. Unsure if truly due to post ictal confusion and her Plasma-lactic acid vein is 1.6 which is considered normal. Rule out und erlying infection or psychosis as a result. Breakthrough seizure History of seizures and is on Keppra Slight leukocytosis but is afebrile unsure exactly etiology Accelerated Hypertension History of hypertension History of cocaine use Tobacco use Plan: Routine EEG: As abnormal and shows a mild to moderate encephalopathy. No seizure discharges. No focal slowing. Cannot obtain MRI since the patient has IUD We'll obtain a repeat CT of the head tomorrow with and without Patient is resumed on her home dose of Keppra 1500 mg every 12 hours. She is also on gabapentin 600 mg 3 times a day. Psychiatry team was consulted for psychosis Recommend pursuing infection workup and we'll defer that management to the primary team. I agree with her sister the patient needs to have a neuropsych evaluation as an outpatient for detailed memory testing. Seizure precaution seizure pads We'll defer the rest of medical management to primary team Upon discharge recommend the patient follow up with a neurologist as an outpatient within 1-2 weeks. The plan discussed with the patient nurse. Dr. Romero will start neurology service tomorrow A.M. Time with Patient: Less than 30
--- NOTE | 2023-01-29 14:14 | P.CN ---
Psychiatric Consult - . Consult date: 01/29/23 Consult:: 01/29/23 12:54 IDENTIFYING DATA: This patient is a [] 57-year-old female, currently lives with her boyfriend and has 2 kids. The daughter also lives with them. She collects SSD. REASON FOR REFERRAL: Psychiatry was consulted for []"psychosis" HISTORY OF PRESENT ILLNESS: The patient presented to the hospital on 01/28 transfer from an outside hospital. Patient apparently was having 2 seizures, transferred for neurological workup and recommendations. Patient apparently was not returning back to baseline and was postictal. Patient had a computed tomography scan of the brain which did not show any acute changes, EEG was showing mild to moderate encephalopathy. Patient never states that patient was doing a bit better today however was mildly confused. Patient was seen today at the bedside, she was agreeable to be directed. She spoke about having "a lot of seizures". She was fairly vague and a poor historian. She claims that she was transferred from an outside hospital however did not know which one. She cl aims that she is having a bad memory and poor recollection. She was alert and oriented to her name, does not know her age and was guessing. She also did not know the correct month was December. She thought that she was in [facility] at this time. She corrected herself afterwards. She was attending divorce. He claims that her mood is "I don't know". Claims that she is having some anxiety. States that her sleep was poor. Appetite is fair. She had fair attention span, was able to list the days of the week backwards. At this time patient denies any suicidal or homical ideations, intent or plan. Patient denies any auditory, visual hallucinations and denies any paranoia or delusions. Patients admits to using []cocaine at times however was minimizing the use, states that she does smoke marijuana and cigarettes. PAST PSYCHIATRIC HISTORY: Patient has a a history of polysubstance abuse. Patient is currently on Seroquel 100 mg daily at bedtime. [Patient denies any previous psychiatric hospitalizations.] [Patient denies any psychiatric outpatient follow-up.] [Patient denies any history of suicide attempts in the past.] Additional Past Medical History / Comment(s): DJD History of Any Multi-Drug Resistant Organisms: None Reported Past Surgical History: Section, Orthopedic Surgery Additional Past Surgical History / Comment(s): neck, hip left Past Psychological History: No Psychological Hx Reported Past Alcohol Use History: None Reported Past Drug Use History: Marijuana ALLERGIES: as per EMR. CHEMICAL DEPENDENCY HISTORY: as per HPI. FAMILY PSYCHIATRIC/SUBSTANCE USE HISTORY: [denies] SOCIAL HISTORY: Patient was born and raised in [facility]. She claims that she completed the eighth grade in school. 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 States that she did go to alf in the past for DUI. She lives with her boyfriend, has 2 kids. MENTAL STATUS EXAM: General Appearance: Patient appears to be thin, stated age is alert, pleasant, and tense to be cooperative. Patient appears to have [fair] hygiene and grooming wearing hospital gown with [fair] eye contact. Behavior: [Patient is calmly lying in bed without any agitated behavior.] Oddly confused at times. Speech: Patient's speech is fluent and nonpressured. Mood/Affect: Patient reports their mood is "ok", affect is congruent Suicidality/Homicidality: Patient denies having any suicidal or homicidal ideation intent or plan. Perceptions: Patient denies any visual hallucinations [and denies any auditory hallucinations] Though content/process: Poverty of content, vague. No delusions or paranoia. Memory and concentration: AOX1-2, midly confused, fair attention span. Can spell "WORLD" backwards. Judgment and insight: [poor] IMPRESSIONS: []Delirium, likely secondary to postictal versus substance abuse Seizure disorder Cocaine abuse Cannabis use disorder Nicotine dependence PLAN: -At this time patient DOES [NOT] meet criteria for inpatient psychiatric admission. [-Delirium precautions recommended with patient including - avoiding use of narcotics and PRESSURIZATION MECHANIC sedatives, limit anticholinergic medications when possible, frequent re-orientation, minimize use of restraints, open window shades during the day and close them at night] -Would recommend the following medication changes/additions: Patient is agreeable to continue on with her Seroquel, we'll increase the dose to 150 mg daily at bedtime for delirium/confusion/insomnia. please attempt to limit bzd and opiates as this will increase confusion, -will await further nuero recs and repeat CT scan. [-farmworker livestock to provide patient with outpatient mental health/psychiatry resources for appropriate follow up upon discharge] [-Advertising Assistant Manager spoke with patient about substance abuse and the harmful effects on medical and mental health, patient verbally understood and agreed.] [-Communicated plan to patient's nurse] [-Psychiatry will sign off at this time] -Please contact with any questions. 01/29/23 14:06 01/29/23 14:12 01/29/23 14:13
[2023-01-29] MEDS: ACETAMINOPHEN TAB 325 MG TAB PO PRN (14:46)
[2023-01-29] MEDS: ATORVASTATIN 40 MG TAB PO SCH (20:11)
[2023-01-29] MEDS: QUEtiapine 50 MG TAB PO SCH (20:11)
[2023-01-29 21:38] LABS: Appearance,Urine Clear (Clear); Bilirubin,Urine Negative (Negative); Color,Urine YELLOW; Glucose,Urine (UA) Negative (Negative); Ketones,Urine Negative (Negative); Protein,Urine 1+ (Negative); Specific Gravity,Urine >1.030 (1.001-1.035)
[2023-01-29 21:39] LABS: Blood,Urine Negative (Negative); Leukocyte Esterase,Urine Negative (Negative); Nitrite,Urine Positive (Negative); Urobilinogen,Urine <2.0 mg/dL (<2.0)
[2023-01-30] MEDS: ACETAMINOPHEN TAB 325 MG TAB PO PRN ×2 (05:02→11:19)
[2023-01-30] MEDS: LEVOTHYROXINE 88 MCG TAB PO SCH (06:33)
[2023-01-30] MEDS: PANTOPRAZOLE 40 MG TABLET PO SCH (06:33)
[2023-01-30] MEDS: GABAPENTIN 300 MG CAP PO SCH ×3 (08:31→21:22)
[2023-01-30] MEDS: LOSARTAN 50 MG TAB PO SCH (08:31)
[2023-01-30] MEDS: levETIRAcetam IV 500 MG/5 ML VIAL IVP SCH ×2 (08:31→20:25)
[2023-01-30 09:25] LABS: Anisocytosis Slight; Basophils % (A) 1 %; Eosinophils # (A) 0.1 k/uL (0-0.7); Eosinophils % (A) 1 %; HCT 42.3 % (34.0-46.0); HGB 13.7 gm/dL (11.4-16.0); Lymphocytes % (A) 33 %; MCH 25.4 pg (25.0-35.0); MCHC 32.4 g/dL (31.0-37.0); MCV 78.3 fL (80.0-100.0); Mean Platelet Volume 8.4; Microcytosis Slight; Monocytes # (A) 0.5 k/uL (0-1.0); Monocytes % (A) 9 %; Neutrophils # (A) 3.2 k/uL (1.3-7.7); Neutrophils % (A) 54 %; Platelet Count 199 k/uL (150-450); RBC 5.41 m/uL (3.80-5.40); RDW 17.2 % (11.5-15.5); WBC 5.9 k/uL (3.8-10.6)
--- NOTE | 2023-01-30 10:52 | P.PN ---
Subjective This is a 57-year-old female with past medical history significant for seizure disorder on Keppra, DJD, marijuana use, perforated gastric ulcer repair July 2022 and multiple other medical issues transferred to the ER from [facility] for neurology evaluation in a patient who initially presented with complaints of 2 witnessed seizures, prolonged post ictal period,confused . Brain CT reported nonacute, CTA reported chronic subclavian stenosis. Afebrile, normal WBC, renal function stable, troponins negative, denies chest pain, palpitations or shortness of breath. She presents with a congested cough. ER noted, loaded with Keppra and Ativan prior to transfer. Patient is currently pleasantly confused, vague historian, does not recall specific events. States her last seizure was in 1-2 days ago with blacking out. States headache improved. 01/29/2023 Sensorium significantly improved, yet memory is still lacking regarding events prior to hospitalization. Recalls minimal details from yesterday. Denies blurred vision, complains of mild headache. Reports her blinking is like "flashes". Maintaining O2 sats in the mid to high 90s on room air. Chest x-ray reported no acute cardiopulmonary disease process, COPD changes. Afebrile, WBC has normalized, 6.7 . Pro-calcitonin ordered . Denies urinary symptoms, no dysuria or frequency, no flank pain. Renal function stable. Consuming to 100% of breakfast. Denies nausea, vomiting or diarrhea. Brain CT reported no acute intracranial process , nonspecific white matter changes likely secondary to chronic small vessel ischemic disease .Abnormal EEG reporting background slowing, suggestive of mild to moderate encephalopathy, otherwise no focal slowing, epileptiform discharges or seizure.Neurology workup in progress, scheduled for MRI of brain. TSH 0.296, free T4 1.17 currently on levothyroxin 100mcgs. 01/30/2023 This is a pleasant 57 is old female who presents with suspected multiple seizures and altered mental status until an outpatient. She's been evaluated by neurologist, and this morning patient denies any more seizure activity. She is oriented to time place but she still feels little confused although reports improvement her EEG initially was negative for acute seizure activity, her Keppra home dose of 750 was increased to 1500 twice a day , patient informed and she agrees. Vitals stable, blood pressure slightly elevated Norvasc 5 mg is given. Labs reviewed, CBC stable and UA is negative for acute process. She remains on Seroquel 150 mg and Keppra as above. This morning patient was eating her breakfast pleasantly with no complaints Objective - Vital Signs Vital signs: Vital Signs Temp 97.6 F 01/30/23 08:41 Pulse 66 01/30/23 08:41 Resp 16 01/30/23 08:41 BP 175/92 01/30/23 08:41 Pulse Ox 98 01/30/23 08:41 FiO2 Intake & Output 01/29/23 01/30/23 01/30/23 18:59 06:59 18:59 Intake Total 20 20 10 Output Total 500 Balance -480 20 10 Weight 38.555 kg Intake: IV 20 20 10 Invasive Line 2 20 20 10 Output: Urine 500 Other: Voiding Method Toilet Toilet Toilet - Exam GENERAL: The patient is alert and oriented x3, not in any acute distress. Well developed, well nourished. HEENT: Pupils are round and equally reacting to light. EOMI. No scleral icterus. No conjunctival pallor. Normocephalic, atraumatic. No pharyngeal erythema. No t hyromegaly. CARDIOVASCULAR: S1 and S2 present. No murmurs, rubs, or gallops. PULMONARY: Chest is clear to auscultation, no wheezing , no crackles. ABDOMEN: Soft, nontender, nondistended, normoactive bowel sounds. No palpable organomegaly. MUSCULOSKELETAL: No joint swelling or deformity. EXTREMITIES: No cyanosis, clubbing, or pedal edema. NEUROLOGICAL: Gross neurological examination did not reveal any focal deficits. SKIN: No rashes. no petechiae. - Labs CBC & Chem 7: 01/30/23 08:50 01/29/23 07:42 Labs: Abnormal Lab Results - Last 24 Hours (Table) 01/30/23 Range/Units 08:50 RBC 5.41 H (3.80-5.40) m/uL MCV 78.3 L (80.0-100.0) fL RDW 17.2 H (11.5-15.5) % Assessment and Plan Assessment: Recurrent seizures in a patient with history of seizure disorder. Cardiology followed by neurologist Keppra dose is increased Post ictal confusion, encephalopathy, etiology unclear, possibly metabolic or toxic secondary to medications, patient had been on opioids, sister had reported patient also using cocaine .EEG abnormal, reported background slowing suggestive for mild to moderate encephalopathy. Potential psychosis, Psychiatry consulted. Marijuana use Osteoarthritis, DJD Emphysema Chronic nicotine dependence Chronic insomnia History of pneumoperitoneum, perforated gastric ulcer with surgical repair at [facility], July 2022 Plan: Continue with Keppra 1500 mg twice a day. Monitor for seizure activity Psychiatric increased dose of her Seroquel 150 mg at bedtime, shortness more calm today. Rest of vitals are stable, checked blood pressure was slightly elevated, Norvasc was added. MRI of the brain could not be done because patient has IUD per Neurologist.
[2023-01-30] MEDS: amLODIPine 5 MG TAB PO SCH (11:15)
--- NOTE | 2023-01-30 12:34 | P.PN ---
Subjective Progress Note Date: 01/30/23 Patient is a 57-year-old female, who was initially seen by Dr. Donny Bowen. Please refer to his note for details. Patient has history of seizure disorder for about last 1 year, of unclear etiology. She presented with breakthrough seizure, and confusion of unknown etiology. EEG showed mild to moderate e ncephalopathy. Dr. Bowen recommended infectious workup. Patient is currently on Keppra 1500 mg twice a day, mentation is improving. Patient follows up with Dr. Mckee office. Patient lives with her boyfriend. She does not use any assistive device. She denies any alcohol use. She does smoke tobacco 1 pack per day since age 14. Patient states that she used to get a lot of migraines when she was younger. There were "all the time". Lately she has been getting it only periodically, starting from back to the front. The Tylenol or Motrin is not working. Patient is complaining of headache for 2 days. She rates at 7/10, from back to the front. She does not know if it is her migraine. I spoke to patient's significant other, who mentions that patient's seizures started about a year ago. She is on Keppra, takes medication regularly. He believes that her memory is getting worse, from going bad to worse particularly in the last 4 months. She asks same question over and over. She denies any family history of dementia. Patient's significant other states that the IUD was removed 8 years ago. Some of the workup during his hospital visit consisted of: Temperature is 97.4 Fahrenheit and the repair is 98.4 Fahrenheit. On initial presentation her blood pressure was 194/97 with recent is 159/97. White blood cells 14.7 thousand, MCV is 76.0. Sodium is 135, calcium 9.7, magnesium is 1.9, Plasma-Lyte acid venous is 1.6. TSH is 0.296 and the free T4 is 1.7 Folate is 11.9 Vitamin B12 is 794 Ammonia level is less than 9. CT of the head is reported as no acute intracranial process. Nonspecific white matter changes likely secondary due to chronic small vessel ischemic disease. Routine EEG is abnormal. Background slowing suggestive of mild to moderate encephalopathy. Otherwise there is no focal slowing, perform discharge or seizure on the EEG. Objective - Vital Signs Vital signs: Vital Signs Temp 97.6 F 01/30/23 08:41 Pulse 66 01/30/23 08:41 Resp 16 01/30/23 08:41 BP 175/92 01/30/23 08:41 Pulse Ox 98 01/30/23 08:41 FiO2 Intake & Output 01/29/23 01/30/23 01/30/23 18:59 06:59 18:59 Intake Total 20 20 10 Output Total 500 Balance -480 20 10 Weight 38.555 kg Intake: IV 20 20 10 Invasive Line 2 20 20 10 Output: Urine 500 Other: Voiding Method Toilet Toilet - Exam Patient is alert and awake in no distress. Speech and language functions are normal. No aphasia or dysarthria. Patient states that it is [facility]. She states current president is Renetta, but "not sure". Patient knows her date of , but could not tell what current year is. She states is either 2013 oh 2012. She says that she is around 53 years of age. On cranial examination pupils are equal, round and reactive to light, visual umanzor are full with no neglect. Extraocular muscles are intact. Face is symmetric and tongue protrudes the midline. On muscle strength testing there is no pronator drift and the strength is normal in arms and legs. Sensory to touch is equal. No neglect. No ataxia for [id number] testing bilaterally. - Labs CBC & Chem 7: 01/30/23 08:50 01/29/23 07:42 Labs: Abnormal Lab Results - Last 24 Hours (Table) 01/30/23 Range/Units 08:50 RBC 5.41 H (3.80-5.40) m/uL MCV 78.3 L (80.0-100.0) fL RDW 17.2 H (11.5-15.5) % Assessment and Plan Assessment: This is a 57-year-old woman with history of seizure who presented emergency department because of reported breakthrough seizure. According to the sister she's been having psychosis with the accusing people of stealing her money as well as being aggressive. Also per sister in the last few weeks and she has used cocaine (UDS not checked this admission). On examination she continues to be confused. Encephalopathy of unknown etiology. Unsure if truly due to post ictal confusion and her Plasma-lactic acid vein is 1.6 which is considered normal. Rule out underlying infection or psychosis as a result. Breakthrough seizure History of seizures and is on Keppra Slight leukocytosis but is afebrile unsure exactly etiology Accelerated Hypertension History of hypertension Marijuana use History of cocaine use (says very few times) Tobacco use Plan: Routine EEG: As abnormal and shows a mild to moderate encephalopathy. No seizure discharges. No focal slowing. I spoke to patient's significant other, who mentions that patient's IUD was removed about [address] of the head with and without contrast still pending. In the order section says "taken", but no films available to be reviewed. She does not know if she had computed tomography scan head done yet or not. "I like to say yes", she states. Patient has seizure despite being on maximal dose of Keppra. Her Keppra level is supratherapeutic 75.9 (3-60). Uncertain if memory problems related to side effect of Keppra. We will decrease Keppra down to 1000 g twice a day. Start Lamictal 25 mg twice a day. Patient recommended to stop medication if she gets any rash. Patient is also on high-dose gabapentin 600 mg 3 times a day for specially for her weight of 38 kg. We will decrease gabapentin down to 300 mg 3 times a day. Patient's significant other concerned about drug interactions. I informed him that the medications that she takes does not have much interaction, except dose of gabapentin, which I have already decreased today. He states that Seroquel and BuSpar was started about a week ago. Psychiatrist has further increase the dose of Seroquel to 150 mg at night. Psychiatry team was consulted for psychosis. If her memory problem continues to be a concern, then may need lumbar puncture. Await CT. I agree with her sister the patient needs to have a neuropsych evaluation as an outpatient for detailed memory testing. Seizure precaution seizure pads We'll defer the rest of medical management to primary team Upon discharge recommend the patient follow up with a neurologist as an outp atient within 1-2 weeks. Addendum: CT head with and without contrast revealed no acute intracranial abnormality. Mild chronic microvascular ischemic white matter changes. No evidence of enhancing intracranial mass.
[2023-01-30 14:04] LABS: Urine Alcohol Negative (Negative); Urine Barbiturate Negative (Negative); Urine Cocaine Negative (Negative); Urine Methadone Negative (Negative); Urine Opiates Negative (Negative); Urine Phencyclidine Negative (Negative)
[2023-01-30] MEDS: lamoTRIgine 25 MG TAB PO SCH ×2 (14:51→20:43)
--- NOTE | 2023-01-30 16:40 | CT ---
EXAMINATION TYPE: CT brain wo/w con CT DLP: 2182.9 mGycm, Automated exposure control for dose reduction was used. DATE OF EXAM: 01/30/2023 1:36 PM COMPARISON: CT head without contrast 01/28/2023. CLINICAL INDICATION:Female, 57 years old with history of confusion; PHH, Confusion TECHNIQUE: Axial CT images of the brain were obtained with coronal and sagittal reformats created and reviewed. Contrast used:100 cc mL of Isovue 300 without and with IV Contrast, Oral contrast used: none. FINDINGS: Noncontrast study shows no evidence of acute intracranial hemorrhage, midline shift, or mass effect. The basilar cisterns are patent. No parenchymal hemorrhage or extra-axial fluid collection is seen. N o loss of hickey-white matter distinction. Mild patchy areas of hypoattenuation in the cerebral white m atter, most likely chronic microvascular ischemic changes. Ventricles normal in size and position. Re mote mild fracture deformity of the medial right orbital wall, with small piece of surgical hardware anteriorly. An acute osseous abnormality is not identified. No significant fluid in the visualized pa ranasal sinuses. Soft tissues are grossly unremarkable. Postcontrast, there is no evidence of enhancing intracranial mass or other abnormal enhancement seen by CT. Small developmental venous anomaly is suggested in the right frontal lobe. Unremarkable bridge worker ior fossa. IMPRESSION: 1. No acute intracranial CT abnormality. 2. Mild chronic microvascular ischemic white matter changes. 3. No evidence of enhancing intracranial mass.
[2023-01-30] MEDS: HYDROcodone/APAP 5-325MG 1 EACH TAB PO PRN (16:41)
[2023-01-30] MEDS: ATORVASTATIN 40 MG TAB PO SCH (20:26)
[2023-01-30] MEDS: QUEtiapine 50 MG TAB PO SCH (20:26)
[2023-01-31] MEDS ORDERED: hydrALAZINE HCL 20 MG/ML 1 ML VIAL IVP PRN (01:48)
[2023-01-31] MEDS: HYDROcodone/APAP 5-325MG 1 EACH TAB PO PRN ×4 (05:37→23:33)
[2023-01-31] MEDS: LEVOTHYROXINE 88 MCG TAB PO SCH (05:37)
[2023-01-31] MEDS: PANTOPRAZOLE 40 MG TABLET PO SCH (05:37)
[2023-01-31] MEDS: lamoTRIgine 25 MG TAB PO SCH ×2 (07:56→19:55)
[2023-01-31] MEDS: LOSARTAN 50 MG TAB PO SCH (07:56)
[2023-01-31] MEDS: GABAPENTIN 300 MG CAP PO SCH ×3 (07:56→19:56)
[2023-01-31] MEDS: amLODIPine 5 MG TAB PO SCH (07:56)
[2023-01-31] MEDS: levETIRAcetam IV 500 MG/5 ML VIAL IVP SCH ×2 (07:57→19:57)
[2023-01-31] MEDS: ACETAMINOPHEN TAB 325 MG TAB PO PRN ×2 (07:57→19:55)
[2023-01-31] MEDS ORDERED: amLODIPine 5 MG TAB PO STA (10:02)
--- NOTE | 2023-01-31 10:07 | P.PN ---
Subjective This is a 57-year-old female with past medical history significant for seizure disorder on Keppra, DJD, marijuana use, perforated gastric ulcer repair July 2022 and multiple other medical issues transferred to the ER from [facility] for neurology evaluation in a patient who initially presented with complaints of 2 witnessed seizures, prolonged post ictal period,confused . Brain CT reported nonacute, CTA reported chronic subclavian stenosis. Afebrile, normal WBC, renal function stable, troponins negative, denies chest pain, palpitations or shortness of breath. She presents with a congested cough. ER noted, loaded with Keppra and Ativan prior to transfer. Patient is currently pleasantly confused, vague historian, does not recall specific events. States her last seizure was in 1-2 days ago with blacking out. States headache improved. 01/29/2023 Sensorium significantly improved, yet memory is still lacking regarding events prior to hospitalization. Recalls minimal details from yesterday. Denies blurred vision, complains of mild headache. Reports her blinking is like "flashes". Maintaining O2 sats in the mid to high 90s on room air. Chest x-ray reported no acute cardiopulmonary disease process, COPD changes. Afebrile, WBC has normalized, 6.7 . Pro-calcitonin ordered . Denies urinary symptoms, no dysuria or frequency, no flank pain. Renal function stable. Consuming to 100% of breakfast. Denies nausea, vomiting or diarrhea. Brain CT reported no acute intracranial process , nonspecific white matter changes likely secondary to chronic small vessel ischemic disease .Abnormal EEG reporting background slowing, suggestive of mild to moderate encephalopathy, otherwise no focal slowing, epileptiform discharges or seizure.Neurology workup in progress, scheduled for MRI of brain. TSH 0.296, free T4 1.17 currently on levothyroxin 100mcgs. 01/30/2023 This is a pleasant 57 is old female who presents with suspected multiple seizures and altered mental status until an outpatient. She's been evaluated by neurologist, and this morning patient denies any more seizure activity. She is oriented to time place but she still feels little confused although reports improvement her EEG initially was negative for acute seizure activity, her Keppra home dose of 750 was increased to 1500 twice a day , patient informed and she agrees. Vitals stable, blood pressure slightly elevated Norvasc 5 mg is given. Labs reviewed, CBC stable and UA is negative for acute process. She remains on Seroquel 150 mg and Keppra as above. This morning patient was eating her breakfast pleasantly with no complaints 01/31/2023 Patient is no headache chest pain or on the other complaints. No dizziness or weakness or numbness. Patient made a problem is memory, reorientation as provided for the patient She was still elevated this morning to 212/95. We increased her Norvasc to 10 mg daily and start metoprolol 25 mg with close follow-up of her blood pressure Repeat CAT scan of the brain showing no acute process Patient currently covered with Keppra 1000 mg twice daily and Lamictal 25 mg twice daily and the dose of gabapentin lower to 300 mg as well. Objective - Vital Signs Vital signs: Vital Signs Temp 98.6 F 01/31/23 07:44 Pulse 96 01/31/23 07:44 Resp 16 01/31/23 07:44 BP 212/95 01/31/23 07:44 Pulse Ox 98 01/31/23 07:44 FiO2 Intake & Output 01/30/23 01/31/23 01/31/23 18:59 06:59 18:59 Intake Total 608 480 Balance 608 480 Intake: IV 10 Invasive Line 2 10 Oral 598 480 Other: Voiding Method Toilet Toilet Toilet # Voids 3 # Bowel Movements 0 - Exam GENERAL: The patient is alert and oriented x3, not in any acute distress. Well developed, well nourished. HEENT: Pupils are round and equally reacting to light. EOMI. No scleral icterus. No conjunctival pallor. Normocephalic, atraumatic. No pharyngeal erythema. No thyromegaly. CARDIOVASCULAR: S1 and S2 present. No murmurs, rubs, or gallops. PULMONARY: Chest is clear to auscultation, no wheezing , no crackles. ABDOMEN: Soft, nontender, nondistended, normoactive bowel sounds. No palpable organomegaly. MUSCULOSKELETAL: No joint swelling or deformity. EXTREMITIES: No cyanosis, clubbing, or pedal edema. NEUROLOGICAL: Gross neurological examination did not reveal any focal deficits. SKIN: No rashes. no petechiae. - Labs CBC & Chem 7: 01/30/23 08:50 01/29/23 07:42 Labs: Abnormal Lab Results - Last 24 Hours (Table) 01/29/23 Range/Units 15:00 Ur Amphetamine Screen Positive A (Negative) U Cannabinoids Screen Positive A (Negative) Assessment and Plan Assessment: Recurrent seizures in a patient with history of seizure disorder. Cardiology followed by neurologist Keppra dose is increased Post ictal confusion, encephalopathy, etiology unclear, possibly metabolic or toxic secondary to medications, patient had been on opioids, sister had reported patient also using cocaine .EEG abnormal, reported background slowing suggestive for mild to moderate encephalopathy. Potential psychosis, Psychiatry consulted. Marijuana use Osteoarthritis, DJD Emphysema Chronic nicotine dependence Chronic insomnia History of pneumoperitoneum, perforated gastric ulcer with surgical repair at [facility], July 2022 Plan: Continue with Keppra 1000 mg twice a day. Lamictal added Continue with gabapentin at the lower dose Monitor for seizure activity Start Norvasc 10 mg and metoprolol 25 mg and monitor blood pressure Psychiatric increased dose of her Seroquel 150 mg at bedtime, shortness more calm today. Rest of vitals are stable, checked blood pressure was slightly elevated, Norvasc was added. MRI of the brain could not be done because patient has IUD per Neurologist. Dr. Martinez will resume the care of the patient tomorrow
[2023-01-31] MEDS: METOPROLOL TARTRATE 25 MG TAB PO SCH ×2 (10:24→19:56)
[2023-01-31] MEDS: NICOTINE 21MG/24HR PATCH TRANSDERM SCH (17:45)
[2023-01-31] MEDS: QUEtiapine 50 MG TAB PO SCH (19:56)
[2023-01-31] MEDS: ATORVASTATIN 40 MG TAB PO SCH (19:56)
[2023-02-01] MEDS: HYDROcodone/APAP 5-325MG 1 EACH TAB PO PRN ×3 (05:53→20:10)
[2023-02-01] MEDS: LEVOTHYROXINE 88 MCG TAB PO SCH (05:54)
[2023-02-01] MEDS: PANTOPRAZOLE 40 MG TABLET PO SCH (05:54)
[2023-02-01] MEDS ORDERED: ERGOCALCIFEROL 1,250 MCG (50,000 IU) CAPSULE PO SCH (09:00)
[2023-02-01] MEDS: lamoTRIgine 25 MG TAB PO SCH ×2 (10:06→20:12)
[2023-02-01] MEDS: amLODIPine 10 MG TAB PO SCH (10:06)
[2023-02-01] MEDS: NICOTINE 21MG/24HR PATCH TRANSDERM SCH (10:06)
[2023-02-01] MEDS: levETIRAcetam IV 500 MG/5 ML VIAL IVP SCH ×2 (10:06→20:12)
[2023-02-01] MEDS: METOPROLOL TARTRATE 25 MG TAB PO SCH ×2 (10:07→20:10)
[2023-02-01] MEDS: GABAPENTIN 300 MG CAP PO SCH ×3 (10:07→20:11)
[2023-02-01] MEDS: LOSARTAN 50 MG TAB PO SCH (10:07)
--- NOTE | 2023-02-01 10:40 | P.PN ---
Subjective Progress Note Date: 01/31/23 01/31/2023: Patient was seen for a follow-up. Patient's sister was also present today. Patient's sister states that she has been confused for 1 month. She is about 70% back to baseline, but not 100%. She has a headache 4/10. Her current blood pressure is 174/78. Patient has been started on metoprolol and amlodipine. 01/30/2023: Patient is a 57-year-old female, who was initially seen by Dr. Donny Bowen. Please refer to his note for details. Patient has history of seizure disorder for about last 1 year, of unclear etiology. She presented with breakthrough seizure, and confusion of unknown etiology. EEG showed mild to moderate encephalopathy. Dr. Bowen recommended infectious workup. Patient is currently on Keppra 1500 mg twice a day, mentation is improving. Patient follows up with Dr. Mckee office. Patient lives with her boyfriend. She does not use any assistive device. She denies any alcohol use. She does smoke tobacco 1 pack per day since age 14. P atient states that she used to get a lot of migraines when she was younger. There were "all the time". Lately she has been getting it only periodically, starting from back to the front. The Tylenol or Motrin is not working. Patient is complaining of headache for 2 days. She rates at 7/10, from back to the front. She does not know if it is her migraine. I spoke to patient's significant other, who mentions that patient's seizures started about a year ago. She is on Keppra, takes medication regularly. He believes that her memory is getting worse, from going bad to worse particularly in the last 4 months. She asks same question over and over. She denies any family history of dementia. Patient's significant other states that the IUD was removed 8 years ago. Some of the workup during his hospital visit consisted of: Temperature is 97.4 Fahrenheit and the repair is 98.4 Fahrenheit. On initial presentation her blood pressure was 194/97 with recent is 159/97. White blood cells 14.7 thousand, MCV is 76.0. Sodium is 135, calcium 9.7, magnesium is 1.9, Plasma-Lyte acid venous is 1.6. TSH is 0.296 and the free T4 is 1.7 Folate is 11.9 Vitamin B12 is 794 Ammonia level is less than 9. CT of the head is reported as no acute intracranial process. Nonspecific white matter changes likely secondary due to chronic small vessel ischemic disease. Routine EEG is abnormal. Background slowing suggestive of mild to moderate encephalopathy. Otherwise there is no focal slowing, perform discharge or seizure on the EEG. Objective - Vital Signs Vital signs: Vital Signs Temp 97.9 F 01/31/23 11:24 Pulse 77 01/31/23 14:00 Resp 16 01/31/23 14:00 BP 153/78 01/31/23 11:24 Pulse Ox 98 01/31/23 11:24 FiO2 Intake & Output 01/30/23 01/31/23 01/31/23 18:59 06:59 18:59 Intake Total 608 480 Balance 608 480 Intake: IV 10 Invasive Line 2 10 Oral 598 480 Other: Voiding Method Toilet Toilet Toilet # Voids 3 # Bowel Movements 0 - Exam Patient is alert and awake in no distress. Speech and language functions are normal. No aphasia or dysarthria. Patient states that it is [facility]. On cranial examination pupils are equal, round and reactive to light, visual umanzor are full with no neglect. Extraocular muscles are intact. Face is symmetric and tongue protrudes the midline. On muscle strength testing there is no pronator drift and the strength is normal in arms and legs. Sensory to touch is equal. No neglect. No ataxia for [id number] testing bilaterally. - Labs CBC & Chem 7: 01/30/23 08:50 01/29/23 07:42 Assessment and Plan Assessment: This is a 57-year-old woman with history of seizure who presented emergency department because of reported breakthrough seizure. According to the sister she's been having psychosis with the accusing people of stealing her money as well as being aggressive. Also per sister in the last few weeks and she has used cocaine (UDS not checked this admission). On examination she continues to be confused. Encephalopathy of unknown etiology. Unsure if truly due to post ictal confusion and her Plasma-lactic acid vein is 1.6 which is considered normal. Rule out underlying infection or psychosis as a result. Breakthrough seizure History of seizures and is on Keppra Slight leukocytosis but is afebrile unsure exactly etiology Accelerated Hypertension History of hypertension Marijuana use History of cocaine use (says very few times) Tobacco use Plan: Routine EEG: As abnormal and shows a mild to moderate encephalopathy. No seizure discharges. No focal slowing. I spoke to patient's significant other, who mentions that patient's IUD was removed about [address] head with and without contrast revealed no acute intracranial abnormality. Mild chronic microvascular ischemic white matter changes. No evidence of enhancing intracranial mass. Patient has seizure despite being on maximal dose of Keppra. Her Keppra level is supratherapeutic 75.9 (3-60). Uncertain if memory problems related to side effect of Keppra. We will decrease Keppra down to 1000 mg twice a day. Start Lamictal 25 mg twice a day. Patient recommended to stop Lamictal if she gets any rash. Patient is also on high-dose gabapentin 600 mg 3 times a day for specially for her weight of 38 kg. We will decrease gabapentin down to 300 mg 3 times a day. Patient's significant other concerned about drug interactions. I informed him that the medications that she takes does not have much interaction, except dose of gabapentin, which I have already decreased today. He states that Seroquel and BuSpar was started about a week ago. Psychiatrist has further increase the dose of Seroquel to 150 mg at night. Psychiatry team was consulted for psychosis. Patient continues to have memory issues. We will perform lumbar puncture. I agree with her sister the patient needs to have a neuropsych evaluation as an outpatient for detailed memory testing. Seizure precaution seizure pads We'll defer the rest of medical management to primary team Upon discharge recommend the patient follow up with a neurologist as an outpatient within 1-2 weeks.
[2023-02-01] MEDS ORDERED: LIDOCAINE 1% INJ 10MG/ML (20 ML MDV) ONE (14:25)
[2023-02-01] MEDS: ACETAMINOPHEN TAB 325 MG TAB PO PRN (15:24)
--- NOTE | 2023-02-01 18:30 | P.PN ---
Subjective Progress Note Date: 02/01/23 02/01/2023: Patient was seen for a follow-up. Patient states her memory is slightly better. Still complaining of bad headache, rating 8/10. No new focal symptoms. No seizure-like activity or syncope. 01/31/2023: Patient was seen for a follow-up. Patient's sister was also present today. Patient's sister states that she has been confused for 1 month. She is about 70% back to baseline, but not 100%. She has a headache 4/10. Her current blood pressure is 174/78. Patient has been started on metoprolol and amlodipine. 01/30/2023: Patient is a 57-year-old female, who was initially seen by Dr. Donny Bowen. Please refer to his note for details. Patient has history of seizure disorder for about last 1 year, of unclear etiology. She presented with breakthrough seizure, and confusion of unknown etiology. EEG showed mild to moderate encephalopathy. Dr. Bowen recommended infectious workup. Patient is currently on Keppra 1500 mg twice a day, mentation is improving. Patient follows up with Dr. Mckee office. Patient lives with her boyfriend. She does not use any assistive device. She denies any alcohol use. She does smoke tobacco 1 pack per day since age 14. Patient states that she used to get a lot of migraines when she was younger. There were "all the time". Lately she has been getting it only periodically, starting from back to the front. The Tylenol or Motrin is not working. Patient is complaining of headache for 2 days. She rates at 7/10, from back to the front. She does not know if it is her migraine. I spoke to patient's significant other, who mentions that patient's seizures started about a year ago. She is on Keppra, takes medication regularly. He believes that her memory is getting worse, from going bad to worse particularly in the last 4 months. She asks same question over and over. She denies any family history of dementia. Patient's significant other states that the IUD was removed 8 years ago. Some of the workup during his hospital visit consisted of: Temperature is 97.4 Fahrenheit and the repair is 98.4 Fahrenheit. On initial presentation her blood pressure was 194/97 with recent is 159/97. White blood cells 14.7 thousand, MCV is 76.0. Sodium is 135, calcium 9.7, magnesium is 1.9, Plasma-Lyte acid venous is 1.6. TSH is 0.296 and the free T4 is 1.7 Folate is 11.9 Vitamin B12 is 794 Ammonia level is less than 9. CT of the head is reported as no acute intracranial process. Nonspecific white matter changes likely secondary due to chronic small vessel ischemic disease. Routine EEG is abnormal. Background slowing suggestive of mild to moderate encephalopathy. Otherwise there is no focal slowing, perform discharge or seizure on the EEG. Objective - Vital Signs Vital signs: Vital Signs Temp 98.0 F 02/01/23 08:00 Pulse 59 L 02/01/23 12:00 Resp 18 02/01/23 12:00 BP 186/72 02/01/23 12:00 Pulse Ox 99 02/01/23 12:00 FiO2 Intake & Output 01/31/23 02/01/23 02/01/23 18:59 06:59 18:59 Intake Total 1080 480 0 Balance 1080 480 0 Intake: Oral 1080 480 0 Other: Voiding Method Toilet Toilet # Voids 2 2 1 - Exam Patient is alert and awake in no distress. Speech and language functions are normal. No aphasia or dysarthria. Patient states that it is [facility]. On cranial examination pupils are equal, round and reactive to light, visual umanzor are full with no neglect. Extraocular muscles are intact. Face is symmetric and tongue protrudes the midline. On muscle strength testing there is no pronator drift and the strength is normal in arms and legs. Sensory to touch is equal. No neglect. No ataxia for [id number] testing bilaterally. - Labs CBC & Chem 7: 01/30/23 08:50 01/29/23 07:42 Assessment and Plan Assessment: This is a 57-year-old woman with history of seizure who presented emergency department because of reported breakthrough seizure. According to the sister she's been having psychosis with the accusing people of stealing her money as well as being aggressive. Also per sister in the last few weeks and she has used cocaine (UDS not checked this admission). On examination she continues to be confused. Encephalopathy of unknown etiology. Unsure if truly due to post ictal confusion and her Plasma-lactic acid vein is 1.6 which is considered normal. Rule out underlying infection or psychosis as a result. Breakthrough seizure History of seizures and is on Keppra Slight leukocytosis but is afebrile unsure exactly etiology Accelerated Hypertension History of hypertension Marijuana use History of cocaine use (says very few times) Tobacco use Plan: Routine EEG: As abnormal and shows a mild to moderate encephalopathy. No seizure discharges. No focal slowing. MRI was not done, because it was felt patient has IUD. I spoke to patient's significant other, who mentions that patient's IUD was removed about [address] head with and without contrast revealed no acute intracranial abnormality. Mild chronic microvascular ischemic white matter changes. No evidence of enhancing intracranial mass. Patient has seizure despite being on maximal dose of Keppra. Her Keppra level is supratherapeutic 75.9 (3-60). Uncertain if memory problems related to side effect of Keppra. We will decrease Keppra down to 1000 mg twice a day. Start Lamictal 25 mg twice a day. After 1 week, increase Lamictal to 50 mg twice a day. Patient recommended to stop Lamictal if she gets any rash. Patient is also on high-dose gabapentin 600 mg 3 times a day for specially for her weight of 38 kg. We will decrease gabapentin down to 300 mg 3 times a day. Patient's significant other concerned about drug interactions. I informed him that the medications that she takes does not have much interaction, except dose of gabapentin, which I have already decreased today. He states that Seroquel and BuSpar was started about a week ago. Psychiatrist has further increase the dose of Seroquel to 150 mg at night. Psychiatry team on board. Patient continues to have memory issues and headaches. We will perform lumbar puncture. I agree with her sister the patient needs to have a neuropsych evaluation as an outpatient for detailed memory testing. Seizure precaution seizure pads We'll defer the rest of medical management to primary team Upon discharge recommend the patient follow up with a neurologist as an outpatient within 1-2 weeks.
--- NOTE | 2023-02-01 18:36 | P.PCN ---
Date of Procedure: 02/01/23 Preoperative Diagnosis: Cephalalgia, memory loss, possible viral meningitis Postoperative Diagnosis: Cephalgia, memory loss, possible viral meningitis Procedure(s) Performed: Lumbar puncture Anesthesia: local Surgeon: Linda Romero Estimated Blood Loss (ml): 0 Pathology: none sent Condition: stable Disposition: floor Indications for Procedure: Cephalgia, memory loss, rule out meningitis Description of Procedure: Informed consent was obtained. All risks and benefits were informed. Patient was placed on the side of the bed in a sitting position. L4 lumbar space was identified and marked. Low back region was sterilized with ChloraPrep and then Betadine. Under very strict aseptic conditions, procedure was performed. Low back region was anesthetized with 1% lidocaine at L4. The spinal needle, 3.5 inch, 21-gauge was inserted at L4 lumbar space. I was able to enter subarachnoid space in 1 pass. Spinal fluid was atraumatic. About 12 mL of clear and colorless spinal fluid obtained in 4 tubes. Stylet was reintroduced, and then spinal needle withdrawn. Band-Aid was applied. Patient was recommended to lay flat for half an hour. Auditory the procedure very well.
[2023-02-01] MEDS: QUEtiapine 50 MG TAB PO SCH (20:11)
[2023-02-01] MEDS: ATORVASTATIN 40 MG TAB PO SCH (20:12)
[2023-02-01 20:40] LABS: Appearance,CSF Clear; CSF Tube Number 4
[2023-02-01 21:07] LABS: Nucleated Cells, CSF 0 u/L (0-5); Red Blood Cell,CSF 0 u/L (0-10)
[2023-02-01 22:08] LABS: Glucose,CSF 67 mg/dL (40-70); Total Protein,CSF 53 mg/dL (12-60)
--- NOTE | 2023-02-01 22:43 | P.PN ---
Subjective Progress Note Date: 02/01/23 This is a 57-year-old female with past medical history significant for seizure disorder on Keppra, DJD, marijuana use, perforated gastric ulcer repair July 2022 and multiple other medical issues transferred to the ER from [facility] for neurology evaluation in a patient who initially presented with complaints of 2 witnessed seizures, prolonged post ictal period,confused . Brain CT reported nonacute, CTA reported chronic subclavian stenosis. Afebrile, normal WBC, renal function stable, troponins negative, denies chest pain, palpitations or shortness of breath. She presents with a congested cough. ER noted, loaded with Keppra and Ativan prior to transfer. Patient is currently pleasantly confused, vague historian, does not recall specific events. States her last seizure was in 1-2 days ago with blacking out. States headache improved. 01/29/2023 Sensorium significantly improved, yet memory is still lacking regarding events prior to hospitalization. Recalls minimal details from yesterday. Denies blurred vision, complains of mild headache. Reports her blinking is like "flashes". Maintaining O2 sats in the mid to high 90s on room air. Chest x-ray reported no acute cardiopulmonary disease process, COPD changes. Afebrile, WBC has normalized, 6.7 . Pro-calcitonin ordered . Denies urinary symptoms, no dysuria or frequency, no flank pain. Renal function sta ble. Consuming to 100% of breakfast. Denies nausea, vomiting or diarrhea. Brain CT reported no acute intracranial process , nonspecific white matter changes likely secondary to chronic small vessel ischemic disease .Abnormal EEG reporting background slowing, suggestive of mild to moderate encephalopathy, otherwise no focal slowing, epileptiform discharges or seizure.Neurology workup in progress, scheduled for MRI of brain. TSH 0.296, free T4 1.17 currently on levothyroxin 100mcgs. 01/30/2023 This is a pleasant 57 is old female who presents with suspected multiple seizures and altered mental status until an outpatient. She's been evaluated by neurologist, and this morning patient denies any more seizure activity. She is oriented to time place but she still feels little confused although reports improvement her EEG initially was negative for acute seizure activity, her Keppra home dose of 750 was increased to 1500 twice a day , patient informed and she agrees. Vitals stable, blood pressure slightly elevated Norvasc 5 mg is given. Labs reviewed, CBC stable and UA is negative for acute process. She remains on Seroquel 150 mg and Keppra as above. This morning patient was eating her breakfast pleasantly with no complaints 01/31/2023 Patient is no headache chest pain or on the other complaints. No dizziness or weakness or numbness. Patient made a problem is memory, reorientation as provided for the patient She was still elevated this morning to 212/95. We increased her Norvasc to 10 mg daily and start metoprolol 25 mg with close follow-up of her blood pressure Repeat CAT scan of the brain showing no acute process Patient currently covered with Keppra 1000 mg twice daily and Lamictal 25 mg twice daily and the dose of gabapentin lower to 300 mg as well. 02/01/2023 She is evaluated today, continues to experience some memory difficulty but feels it is better today. She states she remembers most of yesterday. Pt for LP today per Neurology. Objective - Vital Signs Vital signs: Vital Signs Temp 98.4 F 02/01/23 19:50 Pulse 88 02/01/23 20:00 Resp 16 02/01/23 20:00 BP 161/84 02/01/23 19:50 Pulse Ox 97 02/01/23 19:50 FiO2 Intake & Output 02/01/23 02/01/23 02/02/23 06:59 18:59 06:59 Intake Total 480 240 Balance 480 240 Weight 38.555 kg Intake: Oral 480 240 Other: Voiding Method Toilet Toilet # Voids 2 4 - Exam Gen: well developed, NAD CV: RRR, no murmur lungs: CTAB ABD: soft, nontender - Labs CBC & Chem 7: 01/30/23 08:50 01/29/23 07:42 Assessment and Plan Plan: Continue with current medications and pt for LP today. Neurology following. Add HCTZ for HTN
[2023-02-02] MEDS: LEVOTHYROXINE 88 MCG TAB PO SCH (06:27)
[2023-02-02] MEDS: PANTOPRAZOLE 40 MG TABLET PO SCH (06:28)
[2023-02-02] MEDS: HYDROcodone/APAP 5-325MG 1 EACH TAB PO PRN (06:31)
[2023-02-02 08:49] VITALS: BP 178/94; PULSE 84; RESP 16; TEMP 97.8
[2023-02-02] MEDS: ACETAMINOPHEN TAB 325 MG TAB PO PRN (08:54)
[2023-02-02] MEDS: levETIRAcetam IV 500 MG/5 ML VIAL IVP SCH (08:54)
[2023-02-02] MEDS: GABAPENTIN 300 MG CAP PO SCH (08:54)
[2023-02-02] MEDS: amLODIPine 10 MG TAB PO SCH (08:54)
[2023-02-02] MEDS: lamoTRIgine 25 MG TAB PO SCH (08:54)
[2023-02-02] MEDS: NICOTINE 21MG/24HR PATCH TRANSDERM SCH (08:55)
[2023-02-02] MEDS: METOPROLOL TARTRATE 25 MG TAB PO SCH (08:55)
[2023-02-02] MEDS ORDERED: LOSARTAN-HCTZ 50-12.5 MG 1 EACH TAB PO SCH (09:00)
--- NOTE | 2023-02-02 14:53 | P.DS ---
Providers Date of admission: 01/27/23 23:54 Expected date of discharge: 02/02/23 Attending physician: Fracisco Martinez MD Consults: 01/27/23 23:54 Consult Physician Routine Consulting Provider: Emmett Bowen Consult Reason/Comments: Recurrent seizure with prolonged postictal period Do you want consulting provider notified?: Yes 01/28/23 11:56 Consult Physician Routine Consulting Provider: Gustavo Sanchez Consult Reason/Comments: psychosis Do you want consulting provider notified?: Yes Primary care physician: Fracisco Martinez MD Hospital Course: Final Diagnoses: Recurrent seizures in a patient with history of seizure disorder Post ictal confusion, encephalopathy, etiology unclear, possibly metabolic or toxic secondary to medications, patient had been on opioids, sister had reported patient also using cocaine .EEG abnormal, reported background slowing suggestive for mild to moderate encephalopathy. Potential psychosis, evaluated by psychiatry with recommendations noted, including increasing Seroquel 150 mg at night. Status post is LP. Marijuana use Osteoarthritis, DJD Emphysema Chronic nicotine dependence Chronic insomnia History of pneumoperitoneum, perforated gastric ulcer with surgical repair at [facility], July 2022 Hospital course: H&P Date: 01/28/23 Chief Complaint: seizure activity This is a 57-year-old female with past medical history significant for seizure disorder on Keppra, DJD, marijuana use, perforated gastric ulcer repair July 2022 and multiple other medical issues transferred to the ER from [facility] for neurology evaluation in a patient who initially presented with complaints of 2 witnessed seizures, prolonged post ictal period,confused . Brain CT reported nonacute, CTA reported chronic subclavian stenosis. Afebrile, normal WBC, renal function stable, troponins negative, denies chest pain, palpitations or shortness of breath. She presents with a congested cough. ER noted, loaded with Keppra and Ativan prior to transfer. Patient is currently pleasantly confused, vague historian, does not recall specific events. States her last seizure was in 1-2 days ago with blacking out. States headache improved. 01/29/2023 Sensorium significantly improved, yet memory is still lacking regarding events prior to hospitalization. Recalls minimal details from yesterday. Denies blurred vision, complains of mild headache. Reports her blinking is like "flashes". Maintaining O2 sats in the mid to high 90s on room air. Chest x-ray reported no acute cardiopulmonary disease process, COPD changes. Afebrile, WBC has normalized, 6.7 . Pro-calcitonin ordered . Denies urinary symptoms, no dysuria or frequency, no flank pain. Renal function stab le. Consuming to 100% of breakfast. Denies nausea, vomiting or diarrhea. Brain CT reported no acute intracranial process , nonspecific white matter changes likely secondary to chronic small vessel ischemic disease .Abnormal EEG reporting background slowing, suggestive of mild to moderate encephalopathy, otherwise no focal slowing, epileptiform discharges or seizure.Neurology workup in progress, scheduled for MRI of brain. TSH 0.296, free T4 1.17 currently on levothyroxin 100mcgs. 01/30/2023 This is a pleasant 57 is old female who presents with suspected multiple seizures and altered mental status until an outpatient. She's been evaluated by neurologist, and this morning patient denies any more seizure activity. She is oriented to time place but she still feels little confused although reports improvement her EEG initially was negative for acute seizure activity, her Keppra home dose of 750 was increased to 1500 twice a day , patient informed and she agrees. Vitals stable, blood pressure slightly elevated Norvasc 5 mg is given. Labs reviewed, CBC stable and UA is negative for acute process. She remains on Seroquel 150 mg and Keppra as above. This morning patient was eating her breakfast pleasantly with no complaints 01/31/2023 Patient is no headache chest pain or on the other complaints. No dizziness or weakness or numbness. Patient made a problem is memory, reorientation as provided for the patient She was still elevated this morning to 212/95. We increased her Norvasc to 10 mg daily and start metoprolol 25 mg with close follow-up of her blood pressure Repeat CAT scan of the brain showing no acute process Patient currently covered with Keppra 1000 mg twice daily and Lamictal 25 mg twice daily and the dose of gabapentin lower to 300 mg as well. 02/01/2023 She is evaluated today, continues to experience some memory difficulty but feels it is better today. She states she remembers most of yesterday. Pt for LP today per Neurology. Status post LP reporting clear colorless spinal fluid. CSF RBCs 0 CSF tot nucleated cells 0 CSF glucose 67 CSF total protein 53. HCTZ added for HTN. Significant clinical improvement. Patient will be discharged home today in a stable condition with guarded prognosis pending final DC recommendations and clearance per neurology. Neuropsychiatry recommended regarding in-depth memory testing. Recommending [place] be decreased as per patient's pain specialist. Neurontin decreased. Keppra level supratherapeutic 75.9 (3-60), per neurology, " Uncertain if memory problems related to side effect of Keppra. We will decrease Keppra down to 1000 mg twice a day. Start Lamictal 25 mg twice a day. After 1 week, increase Lamictal to 50 mg twice a day. Patient recommended to stop Lamictal if she gets any rash." The impression and plan of care has been dictated as directed. : I performed a history and examination of this patient, discussed the same with the dictator. I agree with the dictator's note ,documented as a scribe. Any additional findings or plans will be noted. Patient Condition at Discharge: Stable Plan - Discharge Summary Discharge Rx Participant: No New Discharge Prescriptions: New Metoprolol Tartrate [Lopressor] 25 mg PO BID #60 tab amLODIPine [Norvasc] 10 mg PO DAILY #30 tab QUEtiapine [SEROquel] 150 mg PO HS #30 tab Levothyroxine Sodium [Synthroid] 88 mcg PO DAILY@0630 #30 tab Nicotine 21Mg/24Hr Patch [Habitrol] 1 patch TRANSDERM DAILY patch Losartan-Hctz 50-12.5 mg [Hyzaar 50-12.5] 1 each PO DAILY #30 tab levETIRAcetam [Keppra] 1,000 mg PO Q12HR #120 tab lamoTRIgine [LaMICtal] 25 mg PO BID #60 tab Gabapentin [Neurontin] 300 mg PO TID #9 cap Continue Omeprazole 40 mg PO DAILY Ergocalciferol (Vitamin D2) [Drisdol (50,000 Iu)] 1,250 mcg PO MO Atorvastatin [Lipitor] 40 mg PO HS Sucralfate [Carafate] 1 gm PO QID HYDROcodone/APAP 10-325MG [[place] 10-325] 1 tab PO TID PRN #0 PRN Reason: Pain Discontinued busPIRone HCL 10 mg PO BID Losartan Potassium 50 mg PO DAILY Gabapentin 600 mg PO TID Levothyroxine Sodium [Synthroid] 100 mcg PO DAILY levETIRAcetam [Keppra] 1,500 mg PO BID QUEtiapine [SEROquel] 100 mg PO HS Discharge Medication List Atorvastatin [Lipitor] 40 mg PO HS 01/28/23 [History] Ergocalciferol (Vitamin D2) [Drisdol (50,000 Iu)] 1,250 mcg PO MO 01/28/23 [History] Omeprazole 40 mg PO DAILY 01/28/23 [History] Sucralfate [Carafate] 1 gm PO QID 01/28/23 [History] Levothyroxine Sodium [Synthroid] 88 mcg PO DAILY@0630 #30 tab 02/01/23 [Rx] Metoprolol Tartrate [Lopressor] 25 mg PO BID #60 tab 02/01/23 [Rx] QUEtiapine [SEROquel] 150 mg PO HS #30 tab 02/01/23 [Rx] amLODIPine [Norvasc] 10 mg PO DAILY #30 tab 02/01/23 [Rx] Gabapentin [Neurontin] 300 mg PO TID #9 cap 02/02/23 [Rx] HYDROcodone/APAP 10-325MG [[place] 10-325] 1 tab PO TID PRN #0 02/02/23 [Rx] Losartan-Hctz 50-12.5 mg [Hyzaar 50-12.5] 1 each PO DAILY #30 tab 02/02/23 [Rx] Nicotine 21Mg/24Hr Patch [Habitrol] 1 patch TRANSDERM DAILY patch 02/02/23 [Rx] lamoTRIgine [LaMICtal] 25 mg PO BID #60 tab 02/02/23 [Rx] levETIRAcetam [Keppra] 1,000 mg PO Q12HR #120 tab 02/02/23 [Rx] Follow up Appointment(s)/Referral(s): Dr. [facility] [Other] - 1 Week Neuro-Psych., To be arranged in clinic [Other] - 1 Week Fracisco Martinez MD [Primary Care Provider] - 02/06/23 10:00 am (At [facility]) Patient Instructions/Handouts: Recurrent Seizures in Adults (GEN) Discharge Disposition: HOME SELF-CARE
[2023-02-03 14:13] LABS: IgG - CSF 1.6 mg/dL (0.0 - 3.4); IgG/Albumin Index (CSF) 0.51 (0.00 - 0.77); Immunoglobulin G 681 mg/dL (700 - 1600)
== END 2023-02-02 13:09 | disposition home or self-care (01) | DRG 100 ==
LOC: EC 23:49 → 3SCARD 23:54
PROVIDERS: ADMIT Family Medicine; ATTEND Family Medicine
PROC: 009U3ZX Drainage of Spinal Canal, Percutaneous Approach, Diagnostic (ICD-10-PCS; principal; 2023-02-01)
DX: G40.909 Epilepsy, unspecified, not intractable, without status epilepticus (principal); G92.8 Other toxic encephalopathy; R64 Cachexia; A87.9 Viral meningitis, unspecified; M19.90 Unspecified osteoarthritis, unspecified site; T40.2X5A Adverse effect of other opioids, initial encounter; J43.9 Emphysema, unspecified; F17.210 Nicotine dependence, cigarettes, uncomplicated; F12.10 Cannabis abuse, uncomplicated; F14.10 Cocaine abuse, uncomplicated; F51.04 Psychophysiologic insomnia; I10 Essential (primary) hypertension; J44.9 Chronic obstructive pulmonary disease, unspecified; I70.8 Atherosclerosis of other arteries; D72.829 Elevated white blood cell count, unspecified; Z68.21 Body mass index [BMI] 21.0-21.9, adult; Z79.899 Other long term (current) drug therapy; Z79.82 Long term (current) use of aspirin; Z79.890 Hormone replacement therapy
CPT/HCPCS: 70450; 70470; 71046; 80048; 80177; 80306; 80320; 81001; 82040; 82042; 82140; 82164; 82607; 82746; 82784; 82945; 83605; 83735; 83916; 84145; 84157; 84439; 84443; 85025; 87070; 87205; 87252; 89050; 93005; 95819; 96361; 96365; 96375; 99285